=== PATIENT | female | born 1955 | race Caucasian/White ===

== ENCOUNTER 2020-02-23 16:28 | Inpatient (IN) | payer OTHER ==
[~2020-02-23] VITALS: Ht 172.7 cm; Wt 66.3 kg
[2020-02-23 16:29] VITALS: BP 156/125
[2020-02-23 16:53] LABS: HEMATOCRIT 41.9 % (37.0-47.0); HEMOGLOBIN 14.4 gm/dL (12.0-15.0); MCH 30.3 pg (26.0-34.0); MCHC 34.4 g/dL (28.0-37.0); MCV 88.1 fL (80.0-100.0); PLATELET COUNT 49 thou/uL (150-400); RBC 4.76 mil/uL (4.20-5.00); RDW 13.7 % (10.5-14.5)
[2020-02-23 16:55] LABS: BE(vivo) -5.9 mmol/L (-2 to +3); PO2 126.6 mmHg (80.0-100.0); pH 7.524 (7.360-7.450); sO2 98.9 % (92.0-98.0)
[2020-02-23 17:02] LABS: INR 1.1
[2020-02-23 17:03] LABS: WBC 0.9 thou/uL (4.0-11.0)
[2020-02-23 17:05] LABS: PCO2 17.4 mmHg (35.0-45.0)
[2020-02-23 17:10] LABS: ALBUMIN 2.3 g/dL (3.4-5.0); ANION GAP 13 mmol/L (7-16); BUN 27 mg/dL (7-18); CALCIUM 7.8 mg/dL (8.5-10.1); CHLORIDE 91 mmol/L (98-107); CO2 20 mmol/L (21-32); CREATININE 1.9 mg/dL (0.6-1.0); GLUCOSE 121 mg/dL (74-106); MAGNESIUM 1.6 mg/dL (1.8-2.4); SGOT 297 U/L (15-37); SGPT 158 U/L (30-65); SODIUM 124 mmol/L (136-145); TOTAL BILIRUBIN 0.4 mg/dL (0.2-1.0); TOTAL PROTEIN 4.6 g/dL (6.4-8.2); TROPONIN-I <0.06 ng/mL (<0.06)
[2020-02-23 17:12] LABS: POTASSIUM 2.8 mmol/L (3.5-5.1)
[2020-02-23 17:15] LABS: URINE BILIRUBIN NEGATIVE (Negative); URINE BLOOD NEGATIVE (Negative); URINE CLARITY CLEAR; URINE COLOR YELLOW; URINE GLUCOSE-RANDOM* NEGATIVE (Negative); URINE KETONES NEGATIVE (Negative); URINE LEUKOCYTES-REFLEX NEGATIVE (Negative); URINE NITRITE-REFLEX NEGATIVE (Negative); URINE PROTEIN (DIPSTICK) 1+ (Negative); URINE SPECIFIC GRAVITY 1.015 (1.005-1.035); URINE UROBILINOGEN 0.2 E.U./dl (0.2-1.0)
[2020-02-23 17:27] LABS: SQUAMOUS 0-3 Few /LPF (0-3)
[2020-02-23 17:28] LABS: BACTERIA-REFLEX 1-9 Few /HPF (None Seen); CASTS None Seen /LPF (None Seen); CRYSTALS None Seen /LPF (None Seen); URINE RBC None Seen /HPF (0-2); URINE WBC-REFLEX None Seen /HPF (0-5)
[2020-02-23 17:30] LABS: AMP/METHAMP Negative (Negative); BARBITURATES Negative (Negative); BENZODIAZEPINES Negative (Negative); COCAINE Negative (Negative); METHADONE Negative (Negative); OPIATES Negative (Negative); PCP Negative (Negative)
[2020-02-23 17:34] LABS: ABSOLUTE NEUTROPHILS 0.5 thou/uL (1.4-8.2); ANISOCYTOSIS 1+
[2020-02-23] MEDS ORDERED: DRIZALMA SPRINK20 MG PO (18:34)
--- NOTE | 2020-02-23 19:25 | NUR ---
Pt is alert and asks what is going on with her. Explained that she is septic and has an infection and angelica be staying in the hospital. Pt appears to understand. Pt reports that she wants her friend to know where she is. Pt gives consent for PICC line.
--- NOTE | 2020-02-23 20:16 | NUR ---
FRIEND: MINA TRACEY [phone]
--- NOTE | 2020-02-23 20:26 | NUR ---
CONSULTED TO PLACE A PICC FOR A PATIENT IN ER NEEDING URGENT ACCESS. ORDER AND CONSENT NOTED. THE PROCEDURE WELL BENIFITS AND RISKS DISCUSSED. THE RIGHT BASILIC WAS WIDLEY PATENT. A #5F TRIPLE LUMEN POWER PICC WAS PLACED PER HOSPITAL POLICY. A STAT CHEST XRAY CONFIRMED LINE IN PROPER POSITION AND LINE RELAESED FOR USE
[2020-02-23 22:14] LABS: BE(vivo) -15.6 mmol/L (-2 to +3); HCO3 10.3 mmol/L (22.0-26.0); PCO2 25.3 mmHg (35.0-45.0); PO2 341.8 mmHg (80.0-100.0); pH 7.226 (7.360-7.450); sO2 99.7 % (92.0-98.0)
[2020-02-23] MEDS ORDERED: ORENCIA125 MG/1 M SUBQ (23:27)
[2020-02-23] MEDS ORDERED: PREDNISONE 5 MG5 M1 PO ×2 (23:28→23:29)
[2020-02-24] VITALS (99 sets, daily range): BP systolic 74–147; BP diastolic 40–90
--- NOTE | 2020-02-24 01:30 | NUR ---
PT ADMITTED TO ICU FROM ER. WITH SEPSIS AND RESP FAILURE INTUBATED SEDATED WIH PROPOFOL MASON PURPOSEFULLY BUT FOLLOWS NO COMMANDS LEVOPHED GTT 20 MCG NA BICARB GTT 150 CC/HR. WILL CONT TO MONITOR CLOSELY.
[2020-02-24 05:52] LABS: HEMATOCRIT 37.8 % (37.0-47.0); HEMOGLOBIN 13.3 gm/dL (12.0-15.0); MCH 31.2 pg (26.0-34.0); MCHC 35.1 g/dL (28.0-37.0); MCV 88.9 fL (80.0-100.0); PLATELET COUNT 61 thou/uL (150-400); RBC 4.25 mil/uL (4.20-5.00); RDW 13.9 % (10.5-14.5); WBC 2.1 thou/uL (4.0-11.0)
--- NOTE | 2020-02-24 06:00 | NUR ---
REMAINS INTUBATED. LEVOPHED GTT AT 30 MCG NOW. 450 CC UO THIS SHIFT. ALL CONSULTS PLACED. CONT TO SHANE BUT NOT TO COMMAND. WILL CONT TO MONITOR
--- NOTE | 2020-02-24 06:00 | NUR ---
MONITOR SHOWS AFIB RATE 112
[2020-02-24 06:24] LABS: ALBUMIN 1.6 g/dL (3.4-5.0); CREATININE 1.7 mg/dL (0.6-1.0); MAGNESIUM 1.9 mg/dL (1.8-2.4); TOTAL BILIRUBIN 0.6 mg/dL (0.2-1.0); TOTAL PROTEIN 3.3 g/dL (6.4-8.2)
[2020-02-24 06:32] LABS: POTASSIUM 2.5 mmol/L (3.5-5.1)
--- NOTE | 2020-02-24 07:51 | EKG ---
[facility] [place] [address] ELECTROCARDIOGRAM REPORT Name: KENYA RIVER Room #: 244- ADM IN M.R.#: [id number] Admission: 02/23/20 Attend Phys: Del Lira Discharge: Date of : 57 Report #: [id number] THIS REPORT FOR: cc: FAM - No family physician/PCP FAM - No family physician/PCP Fuad Ventura MD [facility] THIS REPORT FOR: //name// [facility] ED Test Date: 2020-02-23 Test Time: 16:34:40 Pat Name: KENYA RIVER Department: Room: [facility] Gender: F Loss Prevention Detective: JAMES : 1955 Requested By: Darlin Rodriguez Order Number: [id number] MD: Fuad Ventura Measurements Intervals Jayess Rate: 137 P: MN: QRS: 46 QRSD: 96 T: -43 QT: 334 QTc: 505 Interpretive Statements Atrial fibrillation Borderline repolarization abnormality Prolonged QT interval No previous ECG available for comparison Electronically Signed On 02-24-2020 7:51:06 CDT by Fuad Ventura [email or web address] <ELECTRONICALLY SIGNED> By: Fuad Ventura MD, [facility] 02/24/20 0751 1634 1634 Fuad Ventura MD, [facility] /EPI
--- NOTE | 2020-02-24 08:17 | NUR ---
0700 RECEIVED REPORT FROM MARJAN. ASSUMED CARE AT THIS TIME.
[2020-02-24 08:18] LABS: ABSOLUTE NEUTROPHILS 1.4 thou/uL (1.4-8.2); METAMYELOCYTES 1 %; PLATELET ESTIMATE DECREASED
--- NOTE | 2020-02-24 09:35 | NUR ---
If tube feeds to start over weekend, recommend vital high protein, initial rate 25ml/hr. Will folllow up again on Thursday
--- NOTE | 2020-02-24 09:45 | NUR ---
SPOKE WITH PATIENT'S FRIEND WHO CALLED EMS, AARON. SHE WILL CALL THE PATIENT'S BROTHER AND SISTER OUT OF STATED TO INFORM US IF THEY HAVE DPOA ON THE PATIENT.
--- NOTE | 2020-02-24 16:49 | NUR ---
Patient admits with sepsis, RANDAL, now intubated and sedated. Sp with patients friend Malaika [phone]. She reports patients closest relative is sister in [place] , sister aware of admission. Casemgt sp with sister as well and updated her with numbers to ICU. 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 She has rheumatoid arthritis, ambulates independently but sometimes "hobbles." She has hx of lymphoma rec tx at [facility]. Malaika and sister unsure if patient has DPOA. Malaika plans to look at patients home. she reports her friend Donita who is also close friend is coming to town this evening from [place]. Malaika reports Donita might know more. Report patient has medicare [id number]. Casemgt following for dc planning. Updated registration and UR.
[2020-02-25] VITALS (92 sets, daily range): BP systolic 83–157; BP diastolic 51–87
[2020-02-25 04:24] LABS: HEMATOCRIT 39.3 % (37.0-47.0); HEMOGLOBIN 13.2 gm/dL (12.0-15.0); MCH 30.4 pg (26.0-34.0); MCHC 33.8 g/dL (28.0-37.0); MCV 90.1 fL (80.0-100.0); PLATELET COUNT 54 thou/uL (150-400); RBC 4.36 mil/uL (4.20-5.00); RDW 14.4 % (10.5-14.5); WBC 5.7 thou/uL (4.0-11.0)
[2020-02-25 04:40] LABS: ALBUMIN 1.4 g/dL (3.4-5.0); CREATININE 1.1 mg/dL (0.6-1.0); MAGNESIUM 1.8 mg/dL (1.8-2.4); PHOSPHORUS 2.7 mg/dL (2.5-4.9); TOTAL BILIRUBIN 0.6 mg/dL (0.2-1.0); TOTAL PROTEIN 3.4 g/dL (6.4-8.2)
[2020-02-25 04:41] LABS: POTASSIUM 2.9 mmol/L (3.5-5.1)
[2020-02-25 04:55] LABS: ABSOLUTE NEUTROPHILS 5.6 thou/uL (1.4-8.2)
[2020-02-25 04:57] LABS: PLATELET ESTIMATE DECREASED
--- NOTE | 2020-02-25 07:29 | NUR ---
Patient remains on the ventilator and sedated. Levophed and Kushal-Synephrine is still infusing but was able to titrate the Levophed down a bit. Patient still has critical lactic acid values despite all the fluid boluses given. No acute events occurred during this shift. Patient as of yet is not progressing towards goal.
--- NOTE | 2020-02-25 08:00 | NUR ---
UPDATED FAMILY FRIEND PRIMITIVO. EMOTIONAL SUPPORT GIVEN.
--- NOTE | 2020-02-25 11:29 | 2DMMODE ---
[facility] [address] [facility] [place] [address] 2 D/M-MODE ECHOCARDIOGRAM Name: ALETAKENYA Lynsey Room #: 244-P ADM IN M.R.#: [id number] Admission: 02/23/20 Attend Phys: Del Lira Discharge: Date of : 57 Report #: [id number] THIS REPORT FOR: cc: FAM - No family physician/PCP FAM - No family physician/PCP Ryan Emanuel MD ~ APPROVED REPORT Study performed: 02/25/2020 08:45:13 EXAM: Comprehensive 2D, Doppler, and color-flow Echocardiogram Patient Location: ICU Room #: 244 Status: routine BSA: 1.73 HR: 108 bpm BP: 112/71 mmHg Other Information Study Quality: Adequate Indications Atrial Fibrillation 2D Dimensions RVDd: 32.28 mm IVSd: 10.44 (7-11mm) LVOT Diam: 20.01 (18-24mm) LVDd: 48.22 mm PWd: 9.33 (7-11mm) Ascending Ao: 30.19 (22-36mm) LVDs: 34.16 (25-40mm) Aortic Root: 30.86 mm IVC: 18.00 mm Volumes Left Atrial Volume (Systole) Single Plane 4CH: 47.40 mL Single Plane 2CH: 61.84 mL LA ESV Index: 35.00 mL/m2 Aortic Valve AoV Peak Jorge.: 1.32 m/s AO Peak Gr.: 7.00 mmHg LVOT Max P.77 mmHg LVOT Max V: 0.83 m/s MARK Vmax: 1.98 cm2 Mitral Valve [facility] [address] [place] [address] 2 D/M-MODE ECHOCARDIOGRAM Name: ALETAKENYA L Room #: 244-P [facility] [place]#: [id number] Admission: 02/23/20 Attend Phys: Del Rehman Discharge: Date of : 57 Report #: [id number] MV Decel. Time: 163.88 ms MV E Max Jorge.: 1.31 m/s IVRT: 69.20 ms Pulmonary Valve PV Peak Jorge.: 0.76 m/s PV Peak Gr.: 2.28 mmHg Tricuspid Valve TR Peak Jorge.: 2.15 m/s RAP Estimate: 10.00 mmHg TR Peak Gr.: 18.57 mmHg PA Pressure: 29.00 mmHg Left Ventricle The left ventricle is normal size. There is normal left ventricular wall thickness. Left ventricular systolic function is borderline. LVEF is 50-55%. Right Ventricle The right ventricle is normal size. The right ventricular systolic function is normal. Atria Left atrium is at the upper limits of normal. The right atrium size is normal. Aortic Valve The aortic valve is normal in structure. No aortic regurgitation is present. There is no aortic valvular stenosis. Mitral Valve The mitral valve is normal in structure. Moderate mitral regurgitation. No evidence of mitral valve stenosis. Tricuspid Valve The tricuspid valve is normal in structure. Trace tricuspid regurgitation. PAP is estimated at 29 mmHg. Pulmonic Valve The pulmonary valve is normal in structure. Mild pulmonic regurgitation. Great Vessels The aortic root is normal in size. IVC is normal in size and collapses <50% with inspiration. Pericardium [facility] [address] [place] [address] 2 D/M-MODE ECHOCARDIOGRAM Name: ALETAKENYA Lynsey Room #: 244-P [facility] IN [facility].#: [id number] Admission: 02/23/20 Attend Phys: Del Rehman Discharge: Date of : 57 Report #: [id number] There is no pericardial effusion. <Conclusion> The left ventricle is normal size. LVEF is 50-55%. Left atrium is at the upper limits of normal. The mitral valve is normal in structure. Moderate mitral regurgitation. The tricuspid valve is normal in structure. Trace tricuspid regurgitation. PAP is estimated at 29 mmHg. The pulmonary valve is normal in structure. Mild pulmonic regurgitation. There is no pericardial effusion. <ELECTRONICALLY SIGNED> By: Ryan Emanuel MD 02/25/20 1128 1128 1128 Ryan Emanuel MD /INF
[2020-02-25 12:38] LABS: BE(vivo) 2.3 mmol/L (-2 to +3); HCO3 26.3 mmol/L (22.0-26.0); PCO2 38.7 mmHg (35.0-45.0); PO2 145.1 mmHg (80.0-100.0)
--- NOTE | 2020-02-25 14:00 | NUR ---
CALLED DR. SORTO, RE K 3.4. ORDERS GIVEN. PT SISTER CALLED UPDATE GIVEN.
[2020-02-25 14:09] LABS: CLARITY CLOUDY; COLOR YELLOW; SOURCE KNEE FLUID; TOTAL VOLUME 19 mL
[2020-02-25 14:30] LABS: BF NUCLEATED CELLS 17424 /mm3; BF RBC 9693 /mm3
[2020-02-25 14:50] LABS: BF CRYSTALS No Crystals seen
[2020-02-25 15:14] LABS: BF MACROPHAGE 6 %; BF NEUTROPHILS 86 %
--- NOTE | 2020-02-25 17:00 | NUR ---
DR. BOB CALLED ASKED THIS RN TO SWEEP VAGINA DUE TO TOXIC SHOCK. NOTHING APPRECIATED IN THE VAULT.
--- NOTE | 2020-02-25 18:42 | NUR ---
PT REMIANED STABLE ON VENT. ABLE TO GET LEVOPHED DOWN TO 10MCG. PT FOLLOWS COMMAND WEAKLY WHEN LIGHTENED UP OFF SEDATION.
[2020-02-26] VITALS (93 sets, daily range): BP systolic 85–120; BP diastolic 56–86
[2020-02-26 05:39] LABS: RDW 14.2 % (10.5-14.5); WBC 4.1 thou/uL (4.0-11.0)
[2020-02-26 05:41] LABS: HEMATOCRIT 33.1 % (37.0-47.0); MCH 30.7 pg (26.0-34.0); MCHC 33.9 g/dL (28.0-37.0); MCV 90.5 fL (80.0-100.0); RBC 3.66 mil/uL (4.20-5.00)
[2020-02-26 05:46] LABS: ALBUMIN 1.1 g/dL (3.4-5.0); CREATININE 0.8 mg/dL (0.6-1.0); PHOSPHORUS 2.4 mg/dL (2.5-4.9); POTASSIUM 3.6 mmol/L (3.5-5.1)
[2020-02-26 05:47] LABS: HEMOGLOBIN 11.2 gm/dL (12.0-15.0)
[2020-02-26 06:06] LABS: CALCIUM 5.6 mg/dL (8.5-10.1)
--- NOTE | 2020-02-26 06:39 | NUR ---
Patient remains on the ventilator with Propofol and Fentanyl infusing for sedation. Patient also remains on Levophed and Neosynephrine for pressure support. Patient follows some commands during sedation vacation. No acute events occurred during this shift.
[2020-02-27] VITALS (77 sets, daily range): BP systolic 86–126; BP diastolic 53–81
[2020-02-27 04:54] LABS: BE(vivo) 11.1 mmol/L (-2 to +3); HCO3 35.3 mmol/L (22.0-26.0); PCO2 45.2 mmHg (35.0-45.0); PO2 113.3 mmHg (80.0-100.0); pH 7.511 (7.360-7.450); sO2 98.5 % (92.0-98.0)
[2020-02-27 05:21] LABS: PLATELET COUNT 26 thou/uL (150-400); WBC 2.6 thou/uL (4.0-11.0)
[2020-02-27 05:26] LABS: HEMATOCRIT 30.7 % (37.0-47.0); HEMOGLOBIN 10.6 gm/dL (12.0-15.0); MCH 31.4 pg (26.0-34.0); MCHC 34.6 g/dL (28.0-37.0); MCV 90.9 fL (80.0-100.0); RBC 3.38 mil/uL (4.20-5.00); RDW 14.3 % (10.5-14.5)
[2020-02-27 05:44] LABS: ALBUMIN 0.9 g/dL (3.4-5.0); CREATININE 0.9 mg/dL (0.6-1.0); POTASSIUM 3.4 mmol/L (3.5-5.1); TOTAL BILIRUBIN 0.4 mg/dL (0.2-1.0); TOTAL PROTEIN 4.9 g/dL (6.4-8.2)
[2020-02-27 05:46] LABS: CALCIUM 5.7 mg/dL (8.5-10.1)
--- NOTE | 2020-02-27 07:41 | NUR ---
0700 RECEIVED REPORT FROM GUERO MADRID. [address] RUSS AT BEDSIDE. EDEMA +3 GENERALIZED. ORDER TO STOP BICARB GTT. ORDER TO WEAN PRESSERS TO A MAP OF 60.
[2020-02-27 08:15] LABS: ABSOLUTE NEUTROPHILS 2.3 thou/uL (1.4-8.2); ANISOCYTOSIS SLIGHT; METAMYELOCYTES 2 %; PLATELET ESTIMATE MARKEDLY DECREASED; POIKILOCYTOSIS SLIGHT
[2020-02-27 08:16] LABS: TOXIC GRANULATION SLIGHT
--- NOTE | 2020-02-27 10:02 | NUR ---
If cleared to feed after CT abdomen, would recommend start vital high protein at 25ml/hr with goal of 50ml/hr while on propofol. Defer fluid needs to physician.
--- NOTE | 2020-02-27 15:46 | NUR ---
chart review. pt remains intubated. unable to visit with pt sister. noted per chart. pt lived alone. will cont following as needed for dc needs. pt niece valentín called stated family unable to be here. i can pass on information to other families. will cont following as needed for dc needs.
--- NOTE | 2020-02-27 17:31 | NUR ---
SPOKE WITH DR FISH TO CLARIFY NEOSYNEPHRINE ORDER, TO CONTINUE GENA FOR ELEVATED HEART RATE.
[2020-02-28] VITALS (71 sets, daily range): BP systolic 80–144; BP diastolic 40–97
--- NOTE | 2020-02-28 06:00 | NUR ---
REMAINS INTUBATED AND SEDATED WITH PROPOFOL AND FENTANYL GTTS. GENA GTT 50 MCG EYES OPEN FOLLOWS SIMPLE COMMANDS. LUNGS REMAIN COARSE BILAT. 800 CC UO THIS SHIFT. CONT TO HAVE 3 + PITTING EDEMA. BATHED. WILL CONT TO MONITOR
[2020-02-28 06:10] LABS: ALBUMIN 0.9 g/dL (3.4-5.0); CREATININE 0.8 mg/dL (0.6-1.0); PHOSPHORUS 2.4 mg/dL (2.5-4.9); POTASSIUM 3.1 mmol/L (3.5-5.1)
[2020-02-28 06:35] LABS: CALCIUM 5.7 mg/dL (8.5-10.1)
[2020-02-28 11:36] LABS: HEMOGLOBIN 9.8 gm/dL (12.0-15.0); MCH 31.1 pg (26.0-34.0); MCV 90.2 fL (80.0-100.0)
[2020-02-28 11:37] LABS: HEMATOCRIT 28.5 % (37.0-47.0); MCHC 34.5 g/dL (28.0-37.0); RBC 3.16 mil/uL (4.20-5.00); RDW 14.3 % (10.5-14.5)
[2020-02-28 12:53] LABS: ABSOLUTE NEUTROPHILS 1.9 thou/uL (1.4-8.2); LARGE PLATELETS SEVERAL; PLATELET COUNT 27 thou/uL (150-400); PLATELET ESTIMATE MARKEDLY DECREASED
--- NOTE | 2020-02-28 18:43 | NUR ---
ASSESSMENTS AND INTERVENTIONS DOCCUMENTED. PATIENT RESTING AT SHIFT CHANGE. PATIENT IN AFIBB WITH RVR. PATIENT STARTED ON CARDIZEM GTT. PATIENT'S NIECE AT BEDSIDE. NIECE UPDATED ABD EDUCATED ABOUT POC. NIECE REMAINED AT BEDSIDE, BUT WAS CAUSING AN INCREASE IN PATIENT'S VITAL SIGNS. RN ASKING NIECE TO STEP OUT INTO THE WAITING ROOM. NIECE ADAMANT ABOUT CPAP TRAIL BUT PATIENT DOES NOT QUALIFY AT THIS TIME. PATIENT RESTING. PATIENT PROGRESSING TOWARDS GOALS AT THIS TIME EVIDENCE BY BEING OFF OF GENA.
[2020-02-28 23:07] LABS: HAV IgM AB (ANTI-HAV IgM) Negative (Negative); HEPATITIS B SURFACE AG Negative (Negative); HEPATITIS C VIRUS AB 0.1 (0.0-0.9)
[2020-02-29] VITALS (8 sets, daily range): BP systolic 84–123; BP diastolic 37–92
--- NOTE | 2020-02-29 05:32 | NUR ---
ASSUMED CARE OF PATIENT AT 1900. CARDIZEM GTT TITRATED TO LOWER HEART RATE. VERSED GTT INITIATED FOR SAME. PROPOFOL AND FENTYNAL STILL INFUSING. AWAKENS EASILY, DENIES PAIN. DAUGHTER CALLED. REVIEWED POC. ALL QUESTIONS ANSWERED. VERBALIZED UNDERSTANDING.
[2020-02-29 05:41] LABS: HEMOGLOBIN 9.6 gm/dL (12.0-15.0); WBC 2.2 thou/uL (4.0-11.0)
[2020-02-29 05:45] LABS: HEMATOCRIT 28.1 % (37.0-47.0); MCH 31.1 pg (26.0-34.0); MCHC 34.2 g/dL (28.0-37.0); MCV 90.9 fL (80.0-100.0); RBC 3.09 mil/uL (4.20-5.00); RDW 14.3 % (10.5-14.5)
[2020-02-29 06:05] LABS: ALBUMIN 0.9 g/dL (3.4-5.0); CALCIUM 6.3 mg/dL (8.5-10.1); CREATININE 0.8 mg/dL (0.6-1.0); MAGNESIUM 1.9 mg/dL (1.8-2.4); PHOSPHORUS 2.1 mg/dL (2.5-4.9); POTASSIUM 3.8 mmol/L (3.5-5.1); TOTAL BILIRUBIN 0.5 mg/dL (0.2-1.0); TOTAL PROTEIN 4.7 g/dL (6.4-8.2)
--- NOTE | 2020-02-29 08:50 | NUR ---
ASSESSMENTS AND INTERVENTIONS DOCCUMENTED. PATIENT SEDATED THIS AM, PATIENT DROWSY AND UNABLE TO FOLLOW COMMANDS. RN TITRATING SEDATION DOWN. AROUND 0830, DONI ROUNDING ON PATIENT. RN INQUIRING ABOUT LASIX DUE TO 3+ PITTING EDEMA. WAITING FOR ORDERS. SUHAIL ARAMBULA ROUNDING, NO NEW ORDERS. RN TO CONTINUE TO IMPLEMENT POC.
--- NOTE | 2020-02-29 14:22 | HC ---
[facility] [place] [address] CONSULTATION Name: KENYA RIVER Room #: 244- ADM IN M.R.#: [id number] Admission: 02/23/20 Attend Phys: Del Lira Discharge: Date of : 57 Report #: [id number] THIS REPORT FOR: cc: FAM - No family physician/PCP FAM - No family physician/PCP Nolan Cummings MD ~ CC: [facility] physician/PCP Pelon Sauceda MD REQUESTING PHYSICIAN: Gregorio Bronson MD REASON FOR CONSULTATION: History of lymphoma. HISTORY OF PRESENT ILLNESS: The patient is a 65-year-old female usually followed by Dr. Jose Paredes at [facility], who has a history of marginal zone lymphoma, stage 4, originally diagnosed in 1999. She has a record in the system from 02/06, at that time, had about a 4-day history when she talked with the upper cutter out about fevers, chills, nausea, vomiting. More recently, it sounds like she had had some similar symptoms and was found to be confused by her friend and EMT was called. She was found to be hypoxic. Here, she is thought to be septic with gram-positive cocci growing from her blood. The patient is currently in the ICU on the ventilator, has been COVID negative. The patient cannot provide any history at this time. This is all from chart review, both at the system and also [facility]. Note that when the patient came in, the CT raised a question about some thickening and fluid in her neck and they thought perhaps there might have source of infection there. ENT saw and did not think so. CAT scans have not found any abscesses or what looks like there does not appear to be any enlarged lymphadenopathy. Counts here were low when she was last lab that I had downloaded from on 12/05/2019. White count was 7.1, hemoglobin at 13.7, platelets 213 with a normal differential at that time. There may be a later lab but that is what I had found at that time. PAST MEDICAL HISTORY: Noted for the low-grade lymphoma as mentioned before with Rituxan single agent in August 2001 for 4 weeks, FCR chemotherapy began on 11/09/2001 and then changed to FC only for third cycle on 01/04/2002 and then fourth cycle fludarabine, Cytoxan only on 01/26/2012. She then had bendamustine and rituximab, I believe, in December 2016 last given and then switched to bendamustine-obinutuzumab in 01/2017, that was given for sixth cycle on 07/01/2017. She then began on Gazyva maintenance on 09/02/2017, discontinued 07/2018 due to, I think, prolonged neutropenia. She was on growth ____ and I believe her counts have been normal. She also had had a bone marrow showing [facility] [address] [place] [address] CONSULTATION Name: KENYA RIVER Room #: 244-P [facility] IN M.R.#: [id number] Admission: 02/23/20 Attend Phys: Del Lira Discharge: Date of : 57 Report #: [id number] that she had normal cellularity. 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 This has subsequently or appears to have been resolved. History is also notable for rheumatologic disorder. Also, here on admission, had atrial fibrillation with rapid ventricular rate, renal insufficiency slightly worse since she has been here. Question of toxic encephalopathy. SOCIAL HISTORY: Not available. FAMILY HISTORY: Not available. MEDICATIONS: At this time in the hospital currently include IV dextrose with sodium bicarbonate; has been on pressors with phenylephrine; also has been receiving hydrocortisone stress doses 100 mg q. 6 hours IV; insulin on a sliding scale; fentanyl p.r.n.; pantoprazole 40 daily IV; vancomycin q. 12, dose adjusted; Zosyn 3.375 grams IV q. 8; heparin 5000 units b.i.d. subcutaneous; Tylenol p.r.n. and Zofran p.r.n. PHYSICAL EXAMINATION: GENERAL: The patient appears her stated age. She is intubated in room #244 of the ICU. VITAL SIGNS: Height is reported as 5 feet 8 inches, 172.7 cm, weight 136 pounds or 62 kilograms. Recent blood pressure 112/64, respirations 14, pulse 109, temperature 96.3. Currently on the ventilator with settings of I believe 40% with some PEEP, if I recall. MOOD: Cannot assess. NEUROLOGIC: Cannot assess full. Pupils are equal. LYMPHATICS: No enlarged lymph nodes in the supraclavicular, axillary or inguinal region. ABDOMEN: Slightly gassy. No masses palpable. EXTREMITIES: Without clubbing or cyanosis. There may be some trace edema. LABORATORY DATA: Here has a sodium of 124 admit, currently 130; potassium 3.1, creatinine 1.7. Glucose currently 261. AST was 297, now 218. Calcium was 7.8 and is currently 6. SGPT was 158, is now 107. Total protein on admit 4.6, now 3.3. Albumin 1.6. Lactic acid has had various ranges, 4.1 on admit, most recent is 5.5. Total CPK 237. C-reactive protein 43. Protime on admit 11 with an INR of 1.1. Drug screen notable for marijuana. White count 0.9 on admit, currently 2.1; hemoglobin 14 4, now 13.3; MCV 88.9; platelets 49 on admit, now 61. Differential has an increase in bands. Also note, there was 1 metamyelocyte seen. ANC on admit was low at 5, now is 1.5 thousand. Influenza A and B negative. TSH 0.565. Coronavirus negative. UA was nonacute. ASSESSMENT AND PLAN: 1. History of lymphoma, not thought to be recurrent. CT shows no evidence. 2. Cytopenia, is most likely sepsis, most recent lab at in November that I could see showed adequate white count, platelet count and hemoglobin. [address] [address] CONSULTATION Name: ALETAKENYA L Room #: 244-P ADM IN M.R.#: [id number] Admission: 02/23/20 Attend Phys: Del Lira Discharge: Date of : 57 Report #: [id number] 3. Gram-positive cocci in blood and sepsis. Continues pressors, antibiotics and IV fluids, cultures per others. 4. Possible rheumatologic condition, now on stress doses of steroids. 5. Metabolic encephalopathy, cannot assess at this time, though CT ____ was unremarkable. 6. Multiple electrolyte abnormalities. Defer to others. 7. Renal insufficiency, dose modification as needed, will defer to others. <ELECTRONICALLY SIGNED> By: Nolan Cummings MD 02/29/20 1422 12 2151 Nolan Cummings MD /nt
--- NOTE | 2020-02-29 17:15 | NUR ---
Case discussed with the care team. Pt remains intubated in the ICU. Nursing reports pt's niece Sol from [place] is the designated visitor per pt's sister/dpoa Christi Kathryn's request. Apparently, Christi is ill herself and had recent surgery. DPOA for HC document is on the chart and was rec'd from the [facility]. Pt's sister Christi is her primary dpoa and friend Wood is her alernate. DC timeframe and needs are uncertain. Will follow.
[2020-02-29 23:54] LABS: URINE BILIRUBIN NEGATIVE (Negative); URINE BLOOD NEGATIVE (Negative); URINE CLARITY CLEAR; URINE COLOR YELLOW; URINE GLUCOSE-RANDOM* NEGATIVE (Negative); URINE KETONES NEGATIVE (Negative); URINE LEUKOCYTES-REFLEX NEGATIVE (Negative); URINE NITRITE-REFLEX NEGATIVE (Negative); URINE PROTEIN (DIPSTICK) 1+ (Negative); URINE SPECIFIC GRAVITY <= 1.005 (1.005-1.035); URINE UROBILINOGEN 0.2 E.U./dl (0.2-1.0)
[2020-03-01] VITALS (42 sets, daily range): BP systolic 87–147; BP diastolic 46–85
[2020-03-01 00:08] LABS: SQUAMOUS 4-10 Moderate /LPF (0-3); URINE WBC-REFLEX 0-5 Rare /HPF (0-5)
[2020-03-01 00:09] LABS: BACTERIA-REFLEX 1-9 Few /HPF (None Seen); CASTS None Seen /LPF (None Seen); CRYSTALS None Seen /LPF (None Seen); MUCUS 0-3 Light strn/LPF (None Seen); URINE RBC 0-2 Rare /HPF (0-2)
[2020-03-01 06:09] LABS: HEMOGLOBIN 10.1 gm/dL (12.0-15.0); WBC 2.2 thou/uL (4.0-11.0)
[2020-03-01 06:10] LABS: HEMATOCRIT 29.8 % (37.0-47.0); MCH 30.3 pg (26.0-34.0); MCHC 33.8 g/dL (28.0-37.0); MCV 89.6 fL (80.0-100.0); RBC 3.33 mil/uL (4.20-5.00); RDW 14.6 % (10.5-14.5)
[2020-03-01 06:34] LABS: CALCIUM 6.7 mg/dL (8.5-10.1); CREATININE 0.7 mg/dL (0.6-1.0); POTASSIUM 3.5 mmol/L (3.5-5.1)
--- NOTE | 2020-03-01 11:26 | NUR ---
had voice message from family and niece valentín. " its ok but little frustrated with communication with all dr, not knowing her whole medical history and want his tx plan from dr. still need updates from the nurse. we were told still waiting on covid test"
--- NOTE | 2020-03-01 18:24 | NUR ---
ASSUMED CARE @ 0700 03/01/20, PT ASSESSMENTS AND VSS COMPLETE PER ICU PROTOCOL. @ 0800, PT PLACED ON CPAP BY RT, 0815, PT HR IN THE 160'S, PT SWITCHED TO A/C, PT'S HR NOT GOING DOWN. SUHAIL PAINTER RAILROAD CAR @ BEDSIDE, JEN PRT ORDERED. @ 1600, PT ABLE TO NOD APPROPRIATELY INTERMMITTENTLY EVEN WHILE ON VERSED AND FENTANYL GTT. DR FISH @ BEDSIDE THIS AFTERNOON TO ASSESS PT, ABLE TO UPDATE ANANTH, @ BEDSIDE. PT'S NIECE. COVID RESULTS BACK NEGATIVE, PT TAKEN OUT OF ISOLATION PER GE. PT TRANSPORTED TO CT, NO COMPLICATIONS NOTED. TF PAUSED @ 0825 THIS AM, RESIDUALS 250ML, RESTARTED @ 1200, RESIDUAL 5ML @ 40, ADVANCED TO 50ML/HR @ 1600, PT ABLE TO TOLERATE.
[2020-03-02] VITALS (25 sets, daily range): BP systolic 88–173; BP diastolic 37–104
[2020-03-02 05:18] LABS: HEMATOCRIT 32.6 % (37.0-47.0)
[2020-03-02 05:20] LABS: HEMOGLOBIN 11.2 gm/dL (12.0-15.0); MCH 30.8 pg (26.0-34.0); MCHC 34.2 g/dL (28.0-37.0); MCV 89.8 fL (80.0-100.0); RBC 3.63 mil/uL (4.20-5.00); RDW 14.5 % (10.5-14.5); WBC 3.8 thou/uL (4.0-11.0)
--- NOTE | 2020-03-02 05:33 | NUR ---
2230: SPOKE TO PT'S SISTER. UPDATED HER ON PT'S STATUS INCLUSINF VITALS. SISTER SEBASTIAN SAID SHE WILL SEE HER THIS AM.
--- NOTE | 2020-03-02 05:43 | NUR ---
AROUND 1900. PT HR WAS BTW 90S AND 120S AND IN AFIB. AROUND 2099, I TOOK PT'S TEMP AND IT WAS 99.5 AXILLARY WITH AFIB RVR OF HR BTW 140s-170S. DR SANON CARDIOLOGY CALLED AND RECIEVED AND ORDER TO INCREASE AMIO GTT TO 1 MG FOR 12 HOURS AND THEN TREND BACK DOWN TO 0.5MG. RN ALSO MAXED PT'S GTT OF FENTANYL AND VERSED; WITH THIS INTERVENTION WITHIN AND HOUR, PT'S HR BEGAN TO TREND DOWN AND SUSTAIN. PT'S HR CAME DOWN TO 80S-110S. TYLENOL GIVEN FOR TEMP, MOST RECENT PT'S TEMP IS 97.0 AXILLARY. AROUND 0, I TITRATED FENTANLY AND VERSED DOWN TO 70 AND 4 RESPECTIVELY AND PT WENT BACK INTO AFIB RVR WITH HR UP TO 170S AGAIN SO I WENT BACK UP ON BOTH DRIPS AND HR BEGAN TRENDING DOWN. PT IS STABLE FOR NOW. GREAT U/O GREATER THAN 300ML THIS SHIFT. WILL CONTINUE TO CLOSELY MONITOR.
[2020-03-02 07:41] LABS: CALCIUM 7.3 mg/dL (8.5-10.1); CREATININE 0.7 mg/dL (0.6-1.0); POTASSIUM 3.2 mmol/L (3.5-5.1)
--- NOTE | 2020-03-02 10:46 | NUR ---
Nutrition: With D/C of propofol, REC increase tube feeds to 65 mL/hr.
--- NOTE | 2020-03-02 11:32 | NUR ---
chart review, report from bedside nurse. no anticipated dc over the weekend. will cont following as needed for dc needs. called jessie laura via phone call # [phone] " i just have asked for ID to call be and i have not heard anything"/valentín. cm passed on information to dr prado. will cont following as needed for dc needs.
--- NOTE | 2020-03-02 13:38 | NUR ---
assumed care of pt at 0700, pt has been a gcs of 9-11, she does not appear to be in pain or in a discomfort. pt has been having a HR in the 120s-140s and cardiology is aware, pt on amio drip currently. cont to need fentanyl and versed for tube management. pt resting in bed with eyes closed. [facility].
--- NOTE | 2020-03-02 17:11 | NUR ---
ASSUMED CARE OF PATIENT AT 1400. PATIENT SEEMS RESTLESS WHILE AWAKE, WITH SLIGHT TREMOR AND ELEVATED HEART RATE. WHEN ASKED IF UNCOMFORTABLE OR IN PATIENT PATIENT SHAKES HEAD NO. FENTANYL GTT INFUSING WELL VERSED GTT FOR VENT MANAGEMENT. NO CPAP TRAIL TODAY DUE TO TACHYCARDIA. REMAINS ON AMIO GTT PER CARDIOLOGY RECS. GENERALIZED EDEMA, SCHEDULED IV LASIX GIVEN WITH ADEQUATE URINE OUTPUT. REPLACING ELECTROLYTES. WILL CONTINUE TO FOLLOW PLAN OF CARE.
--- NOTE | 2020-03-02 20:47 | HC ---
[facility] [place] [address] CONSULTATION Name: KENYA RIVER Room #: 244-[facility] IN M.R.#: [id number] Admission: 02/23/20 Attend Phys: Del Lira Discharge: Date of : 57 Report #: [id number] THIS REPORT FOR: cc: ROSALINA - Cristina family physician/PCP ROSALINA - Cristina family physician/PCP Moose Guerra MD ~ CC: ROSALINA physician/PCP Del Lira REASON FOR CONSULTATION: Acute kidney injury. REASON FOR PRESENTATION: EMS called by her friend. HISTORY OF PRESENT ILLNESS: This is obtained from the medical chart. This is a 65-year-old who has history of lymphoma, is in remission. Apparently, the patient has been having low-grade fever. This was associated with mild diarrhea. She visited with an urgent care. She was instructed to have a COVID test; however, she declined. She went home and had further deterioration of her conditions including altered mental status, low-grade temperature. A friend checked on her and found her severely confused. EMS was called. The patient's oxygen saturation upon the arrival of the EMS was in the 80s. She was found to be in AFib with RVR. She was found to be hypotensive. On presentation to the Emergency Room, she was in an acute kidney injury with a creatinine of 1.9, potassium was 2.8 mandating Nephrology consultation. No further details are available about the patient's history; however, I had reviewed her medical records and it looks like that the patient has history of marginal zone lymphoma treated back in 1999 and is followed by Hematology-Oncology. As of this morning, the patient's condition had improved from the renal side with her creatinine coming down to a normal level. She continued to have issues with hypokalemia. She had a negative COVID-19 test thus far. PAST MEDICAL HISTORY: As obtained from the medical chart, rheumatoid arthritis, lymphoma. FAMILY HISTORY: I am not able to obtain her family history given her current mental status. ALLERGIES: None is listed. HOME MEDICATIONS: Listed: 1. Prednisone. 2. Viracept. SOCIAL HISTORY: Unable to obtain given the patient's current mental status. REVIEW OF SYSTEMS: Unable to obtain given the patient's current mental status. [address] [address] CONSULTATION Name: KENYA RIVER Room #: 244-P [facility] IN ..#: [id number] Admission: 02/23/20 Attend Phys: Del Lira Discharge: Date of : 57 Report #: [id number] PHYSICAL EXAMINATION: GENERAL: She is intubated. VITAL SIGNS: Temperature is 35.7, pulse rate is 98, blood pressure is 106/67, maintained on 2 pressors. HEAD AND NECK: ET tube and central lines in place. CHEST: Decreased air entry bilaterally with minimal crackles. CARDIOVASCULAR: No rub detected. ABDOMEN: Soft. EXTREMITIES: Lower extremities, +1 edema with a warm left knee. LABORATORY VALUES: Reviewed. PH of 7.2 from yesterday, no pH today. White blood cell count 5.7, platelets 54. Significant bandemia present. She has gram-positive cocci in her blood. Sodium is 133, potassium is 2.9, BUN is 23, creatinine is 1.1. IMPRESSION AND PLAN: 1. Septic shock. 2. Acute kidney injury. 3. Respiratory failure. 4. Atrial fibrillation. 5. History of lymphoma. 6. The patient's acute kidney injury is related to the current septic shock. This seems to be improving. I will keep on the current IV fluid. 7. Replace electrolytes. 8. She is growing gram-positive cocci in her blood and currently ID is following and adjusting her antibiotics. 9. She is currently being followed by Hematology-Oncology regarding her remote history of B-cell lymphoma. She is also followed by Cardiology for her atrial fibrillation and by Pulmonary regarding her current intubation status. <ELECTRONICALLY SIGNED> By: Moose Guerra MD 03/02/20 2047 0759 9 Moose Guerra MD /nt
[2020-03-03] VITALS (54 sets, daily range): BP systolic 70–159; BP diastolic 35–101
[2020-03-03 06:01] LABS: HEMOGLOBIN 10.4 gm/dL (12.0-15.0); MCH 30.4 pg (26.0-34.0)
[2020-03-03 06:02] LABS: HEMATOCRIT 30.4 % (37.0-47.0); MCHC 34.2 g/dL (28.0-37.0); RBC 3.42 mil/uL (4.20-5.00); WBC 4.8 thou/uL (4.0-11.0)
[2020-03-03 06:36] LABS: ALBUMIN 1.2 g/dL (3.4-5.0); CALCIUM 7.6 mg/dL (8.5-10.1); CREATININE 0.6 mg/dL (0.6-1.0); PHOSPHORUS 3.4 mg/dL (2.5-4.9); POTASSIUM 3.7 mmol/L (3.5-5.1)
--- NOTE | 2020-03-03 08:00 | NUR ---
Pt continues to have a-fib with RVR going up as high as 165. Rate responds to sedation -- pt was 80-100 bpm when Fentanyl 100 mcg/hr and Versed 6 mg/hr. Per report cardiology was aware of heart rate during day 03/02 and no orders given. Day shift nurse will address again with cardiology. Serum potassium intially 3.1 at beginning of shift; Nurse practioner notified that electrolyte protocol did not seem to be enough replacement given pt low serum K+ during day even after replacement. Extra IVPB dose of KCl given and pt will start on routine replacement as well as protocol while being diuresed. Tolerating tube feeding well except for large amount of liquid brown stool -- 450 cc this shift. Stool does not have look or smell of C.Diff. Sedation was titrated down this morning due to MAP <60; pt currently at Fentanyl 75 mcg/hr and Versed 5 mg/hr. Heart rate is back up to 140-150.
--- NOTE | 2020-03-03 19:52 | NUR ---
A-FIB 120-160'S THIS AM. DR SARMIENTO ROUNDED AND ORDERED CARDIZEM TITRATE BUT KEEP SBP >100. CARDIZEM INFUSING AND HR DECREASED BUT AFTER A FEW HOURS PT HAD HYPOTENSION. ] CARDIZEM STOPPED AND BP REMAINS ON 70'S. PT STARTED ON LEVOPHED FOR SHORT PERIOD OF TIME. BP IMPROVED AND LEVOPHED WEANED OFF. HR RETURNED TO 140'S AND CARDIZEM RESTARTED AT 5MG/HR. PT TOLERATING WELL AT THIS TIME WITH SBP >100. PT REMAINS INTUBATED TODAY. CPAP TRIAL X2 HRS AND TOLERATED WELL THIS AFTERNOON. CONTINUES TO HAVE LARGE AMOUNT OF SECRETIONS AND LOW GRADE TEMP. IV LASIX GIVEN AND DIURESING WELL. TUBE FEEDING INFUSING AND TOLERATING WELL. REPORT GIVEN TO PROGRAM LEAD RN.
[2020-03-03 20:45] LABS: FOLIC ACID 3.4 ng/mL (8.6-58.9)
[2020-03-04] VITALS (83 sets, daily range): BP systolic 62–155; BP diastolic 29–102
[2020-03-04 04:49] LABS: PROTIME 9.2 Seconds (9.3-11.4)
[2020-03-04 05:09] LABS: ALBUMIN 1.2 g/dL (3.4-5.0); CALCIUM 7.7 mg/dL (8.5-10.1); CREATININE 0.8 mg/dL (0.6-1.0); DIRECT BILIRUBIN 0.1 mg/dL (<0.1-0.2); MAGNESIUM 1.6 mg/dL (1.8-2.4); PHOSPHORUS 4.2 mg/dL (2.5-4.9); POTASSIUM 3.4 mmol/L (3.5-5.1); TOTAL BILIRUBIN 0.4 mg/dL (0.2-1.0); TOTAL PROTEIN 4.5 g/dL (6.4-8.2)
[2020-03-04 06:47] LABS: URINE BILIRUBIN NEGATIVE (Negative); URINE BLOOD NEGATIVE (Negative); URINE CLARITY CLEAR; URINE COLOR YELLOW; URINE GLUCOSE-RANDOM* NEGATIVE (Negative); URINE KETONES NEGATIVE (Negative); URINE LEUKOCYTES-REFLEX NEGATIVE (Negative); URINE NITRITE-REFLEX NEGATIVE (Negative); URINE PROTEIN (DIPSTICK) NEGATIVE (Negative); URINE SPECIFIC GRAVITY 1.015 (1.005-1.035); URINE UROBILINOGEN 0.2 E.U./dl (0.2-1.0)
--- NOTE | 2020-03-04 15:27 | NUR ---
ASSUMED CARE @ 0700 03/04/20, PT ASSESSMENTS AND VSS COMPLETE PER ICU PROTOCOL. PT ENCOUNTERED ON FENTANYL AND VERSED GTT FOR SEDATION FOR VENT MANAGEMENT. SEDATION VACATION PERFORMED, PT DID NOT TOLERATE AEB HR 140-160. HR SUSTAINING IN THE 140'S, DR SARMIENTO CALLED, PT PLACED ON CARDIZEM GTT IN ADDITION TO AMIO GTT PT ALREADY ON, DR BARAHONA ROUNDS THIS AFTERNOON, RN EXPLAINS THAT PT HR GOES IN THE 140-160 RANGE WHEN OFF SEDATION , IT IS CONCLUDED THAT PT IS NOT READY FOR CPAP TODAY. ANANTH TURNER @ BEDSIDE [id number], QUESTIONS ANSWERED, NO COMPLICATIONS NOTED, WILL CONT TO MONITOR.
--- NOTE | 2020-03-04 23:22 | NUR ---
UPON INITIAL ASSESSMENT, PT WAS TACHYCARDIC WITH HR 120S-130S AND RESTLESS IN THE BED. SHE WAS MOVING HER EXTREMITIES AND BITING ET TUBE. DID NOT PERFORM SEDATION VACATION DUE TO PATIENT'S AGITATION AND TACHYCARDIA. INCREASED VERSED GTT TO HELP PATIENT RELAX. RESPOSITIONED PT IN BED. SBP 130S. TITRATED DOWN LEVOPHED GTT. SBP NOW 110S-120S. HR 90S-100S. PT RESTING CALMLY IN BED WITH FENTANYL AND VERSED GTT FOR SEDATION MANAGEMENT. [id number] - SPOKE WITH PT'S ANANTH MEHTA. UPDATED PROVIDED ON PATIENT'S CONDITION. ALL QUESTIONS ANSWERED. SPOKE FOR ROUGHLY 15 MINUTES WITH TYSON.
[2020-03-05] VITALS (52 sets, daily range): BP systolic 88–180; BP diastolic 42–97
--- NOTE | 2020-03-05 03:11 | NUR ---
PATIENT REMAINS SEDATED WITH VERSED AND FENTANYL FOR VENT MANAGEMENT. SHE HAS BEEN LESS RESTLESS WITH INCREASE IN VERSED GTT. AMIODARONE AND LEVOPHED GTTS INFUSING FOR HR AND BP MANAGEMENT. SINCE PT IS NOW RESTING CALMLY, HR IS 60S-70S. SHE REMAINS IN AFIB. PT HAD FEVER OF 101.2 AND THEN 99.6 (AXILLARY). TYENOL GIVEN. PARTIAL BED BATH GIVEN. REPOSITIONED TO PREVENT SKIN BREAKDOWN. LIN WITH ADEQUATE URINE OUTPUT. TF VIA OGT; TOLERATING WELL WITH LOW RESIDUALS. ORAL CARE PROVIDED. SMALL TO MEDIUM AMOUNT OF TRACHEAL SECRETIONS. DURING INTIAL ASSESSMENT, PATIENT DID NOT FOLLOW COMMANDS. DURING SUBSEQUENT ASSESSMENT, PATIENT DID FOLLOW SIMPLE COMMANDS AND NODDED HER HEAD TO YES/NO QUESTIONS. PROGRESSING SLOWLY TOWARD POC GOALS. WILL CONTINUE TO MONITOR FURTHER.
[2020-03-05 05:18] LABS: ALBUMIN 1.2 g/dL (3.4-5.0); CALCIUM 7.7 mg/dL (8.5-10.1); CREATININE 0.8 mg/dL (0.6-1.0); PHOSPHORUS 4.3 mg/dL (2.5-4.9)
[2020-03-05 05:21] LABS: POTASSIUM 4.4 mmol/L (3.5-5.1)
[2020-03-05 05:32] LABS: HEMATOCRIT 24.8 % (37.0-47.0); HEMOGLOBIN 8.5 gm/dL (12.0-15.0); MCH 30.6 pg (26.0-34.0); MCHC 34.1 g/dL (28.0-37.0); MCV 89.6 fL (80.0-100.0); RBC 2.77 mil/uL (4.20-5.00); RDW 14.3 % (10.5-14.5); WBC 5.1 thou/uL (4.0-11.0)
[2020-03-05 11:16] LABS: BE(vivo) 5.2 mmol/L (-2 to +3); HCO3 29.8 mmol/L (22.0-26.0); PCO2 43.9 mmHg (35.0-45.0); PO2 96.7 mmHg (80.0-100.0); pH 7.449 (7.360-7.450); sO2 97.6 % (92.0-98.0)
--- NOTE | 2020-03-05 15:41 | NUR ---
pt remains intubated with possible weaning trials. tf for nutritional support. pt on iv gtts for bp. will cont following as needed for dc needs.
--- NOTE | 2020-03-05 18:09 | NUR ---
Patient did fair on weaning trials this AM and maintained stable vitals. Patient anxious upon sedation vacation and reluctantly follows commands. Will continue to perform daily CPAP trials. Patient slowly progressing towards goals to extubation. Nurse spoke to Lima roman, and updated her on patients plan of care.
--- NOTE | 2020-03-05 21:20 | NUR ---
LEVOPHED STARTED ON PATIENT DUE TO LOW BLOOD PRESSURES PRIMARILY DUE TO ADEQUATE SEDATION MEDICATIONS. GTT STARTED AT 1MG/HR TO GOOD EFFECT.
[2020-03-06] VITALS (62 sets, daily range): BP systolic 69–157; BP diastolic 34–111
[2020-03-06 06:20] LABS: HEMATOCRIT 22.8 % (37.0-47.0); HEMOGLOBIN 7.7 gm/dL (12.0-15.0); MCH 30.3 pg (26.0-34.0); MCHC 33.9 g/dL (28.0-37.0); MCV 89.3 fL (80.0-100.0); RBC 2.55 mil/uL (4.20-5.00); RDW 13.9 % (10.5-14.5)
[2020-03-06 06:48] LABS: ALBUMIN 1.1 g/dL (3.4-5.0); CALCIUM 7.5 mg/dL (8.5-10.1); CREATININE 0.7 mg/dL (0.6-1.0); POTASSIUM 3.6 mmol/L (3.5-5.1)
--- NOTE | 2020-03-06 08:01 | NUR ---
ASSUMED PATIENT CARE AT 1845. PATIENT BREATHING FINE ON VENTILATOR EVIDENCED BY ASSESSMENT AND CONTINUOUS SATURATION MONITORING. MEDICATIONS TITRATED TO PROVIDE SEDATION WITHOUT HYPOTENSION. PROBABLE CPAP TRIAL LATER TODAY. CONTINUE PLAN OF CARE.
--- NOTE | 2020-03-06 16:10 | NUR ---
ASSUMED CARE @ 0700 03/06/20, PT ASSESSMENTS AND VSS COMPLETE PER ICU PROTOCOL. PT ENCOUNTERED ON FENTANYL AND VERSED GTT. SEDATION VACATION DONE @ 0830, PT ABLE TO FOLLOW COMMANDS. SEDATION OFF AGAIN @ 1150, PT ETT KEPT COMING OFF, DUE TO EQUIPMENT FAULT, DR BARAHONA INFORMED, DR BARAHONA GAVE THE ORDER TO EXTUBATE PT, PT EXTUBATED @ 1337, RN GIVEN THE ORDER TRANSFER PT TO CCU. REPORT GIVEN TO JAMES MADRID. PT TRANSFERRED TO [facility] @ 1500. NO COMPLICATIONS NOTED. ANANTH LUDWIG, PT'S NIECE NOTIFIED.
--- NOTE | 2020-03-06 17:57 | NUR ---
PT ARRIVED TO UNIT FROM ICU AT APPROX 1500. PT AWAKE, ORIENTED. DROWSY. FRIEND AT BEDSIDE WITH PT. PT NPO POST EXTUBATION TODAY. SPEECH TO EVAL PT IN MORNING. MOUTH SWABS FREQUENTLY. O2 NC 4L, DENIES SOB. VOICE HOARSE AND DRY D/T INTUBATION TUBING. RATES CONTROLLED ON TELE REMAINING AFIB. DENIES NEEDS AT THIS TIME.
[2020-03-07 04:14] VITALS: BP 135/67
[2020-03-07 05:01] LABS: ALBUMIN 1.3 g/dL (3.4-5.0); CALCIUM 7.7 mg/dL (8.5-10.1); CREATININE 0.7 mg/dL (0.6-1.0); PHOSPHORUS 4.2 mg/dL (2.5-4.9); POTASSIUM 3.3 mmol/L (3.5-5.1)
--- NOTE | 2020-03-07 07:43 | NUR ---
ASSUMED PATIENT CARE AT 1845. VITAL SIGNS STABLE WITH PATIENT HAVING NO COMPLAINTS OF PAIN OR NAUSEA. BREATHING STABLE ON NASAL CANNULA EVIDENCED BY ASSESSMENTS AND CONTINUOUS SATURATION MONITORING. PATIENT IS ALERT TO SELF AND THAT SHE IS IN THE HOSPITAL, BUT STILL SOMEWHAT CONFUSED. PATIENT WAS RELUCTANT TO BE IN ANY OTHER POSITION BUT HIGH FOWLERS. CONTINUE PLAN OF CARE.
[2020-03-07 07:52] LABS: HEMATOCRIT 25.6 % (37.0-47.0); HEMOGLOBIN 8.6 gm/dL (12.0-15.0); MCHC 33.6 g/dL (28.0-37.0); MCV 89.4 fL (80.0-100.0); RBC 2.87 mil/uL (4.20-5.00); RDW 13.8 % (10.5-14.5); WBC 3.6 thou/uL (4.0-11.0)
[2020-03-07 09:15] VITALS: BP 116/48
--- NOTE | 2020-03-07 11:20 | NUR ---
Patient transferred to CCU from ICU. Patient was on vent and now extubated. Therapy ordered and 5N consult in process.
[2020-03-07 12:00] VITALS: BP 114/83
[2020-03-07 16:50] VITALS: BP 97/53
--- NOTE | 2020-03-07 16:50 | NUR ---
ASSUMMED PT CARE AT APPROXIMATELY 0700. PT AWAKE AND ORIENTED X3, FORGETFUL. FREQUENT ORIENTATION PROVIDED. ASSESSMENT CHARTED. FALL PRECAUTIONS IN PLACE. PT DENIES HAVING CHEST PAIN. PT DENIES HAVING SOB. PT DENIES HAVING ACUTE PAIN. VITAL SIGNS STABLE. BLOOD SUGARS STABLE. PT TOLERATING ADVANCED DIET. ENCOURAGING EATING AND DRINKING FLUIDS. FECAL MANAGEMENT TUBE REMOVED. ELECTROLYTE PROTOCOL FOLLOWED. EDUCATED PT ABOUT POC. PT COMFORTABLE IN BED. PT DENIES HAVING FURTHER CONCERNS.
[2020-03-07 20:23] VITALS: BP 91/50
--- NOTE | 2020-03-08 00:18 | NUR ---
Assumed pt care at 1900. A/OX3,very soft spoken but able to make needs known.Denies pain on assessment,but grimacing when repositioning her. Pt has generalized edema allover,elevated on pillows. AFIB on the monitor. Dangelo draining light yellow urine w/o problems. Pt has a scabbing area on left side of tongue,niece reported to freelance copywriter pt bite herself when she passed out at home. Oral intake encouraged though pt is reluctant to. Fall precautions in place,will continue to monitor pt.
[2020-03-08 03:43] VITALS: BP 105/60
--- NOTE | 2020-03-08 04:45 | NUR ---
Assumed pt care at 0100, report obtained from previous nurse. Pt is alert but forgetful. No sign of distress noted in pt. Pt is adequately repositioned. Scheduled meds administered to pt. Pt is stable. Vital signs stable. Continue to monitor pt. No further needs at this time.
[2020-03-08 06:17] LABS: ALBUMIN 1.4 g/dL (3.4-5.0); CREATININE 0.6 mg/dL (0.6-1.0); POTASSIUM 3.5 mmol/L (3.5-5.1)
[2020-03-08 09:30] VITALS: BP 110/65
[2020-03-08 12:00] VITALS: BP 117/74
[2020-03-08 16:55] VITALS: BP 105/63
--- NOTE | 2020-03-08 18:45 | NUR ---
ASSUMED CARE PT SHIFT CHANGE. ASSESSMENTS CHARTED.MEDS GIVEN PER OCT. PT ALERT, ORIENTED X3 FORGETFUL AT TIMES. PT WORKED WITH PT/OT/SPEECH-REFER TO NOTES. LOOSE STOOLS X2 THIS SHIFT. LIN REMAINS IN PLACE, PT DIURESING ADEQUATELY. APPETITE FAIR THIS SHIFT. ENCOURAGED TO EAT SUPPLEMENTS. PLAN FOR EGD TOMORROW. PT AND FAMILY AWARE, FAMILY UPDATED. PT CURRENTLY RESTING COMFORTABLY IN BED, EATING DINNER. DENIES CONCERNS. WILL PASS ON REPORT TO NOC RN.
[2020-03-08 20:45] VITALS: BP 91/48
[2020-03-09 00:14] VITALS: BP 100/58
[2020-03-09 04:45] VITALS: BP 104/66
[2020-03-09 05:47] LABS: HEMATOCRIT 25.2 % (37.0-47.0); HEMOGLOBIN 8.7 gm/dL (12.0-15.0); MCH 30.3 pg (26.0-34.0); MCHC 34.4 g/dL (28.0-37.0); MCV 88.2 fL (80.0-100.0); RBC 2.85 mil/uL (4.20-5.00); WBC 4.4 thou/uL (4.0-11.0)
[2020-03-09 05:55] LABS: ALBUMIN 1.5 g/dL (3.4-5.0); CREATININE 0.8 mg/dL (0.6-1.0); PHOSPHORUS 4.3 mg/dL (2.5-4.9)
[2020-03-09 06:24] LABS: POTASSIUM 2.7 mmol/L (3.5-5.1)
--- NOTE | 2020-03-09 07:56 | NUR ---
patient care were assumed at shift change. patient was assessed and meds were passed. patient is npo after midnight due to an egd today. the patient can communicate her needs if she is given enough time. hourly round were done and the bed is in a low and locked position
--- NOTE | 2020-03-09 08:43 | NUR ---
ASSUMED CARE OF PT AT SHIFT CHANGE, ALERT AND ORIENTED X 3, SLIGHTLY FORGETFUL;STATES SHE HAS NOT AMBULATED YET, SO AMB STATUS UNK AT THIS TIME, WILL USE MAX ASSIST SHOULD SHE NEED TO GET UP, TURN QTWO HOUR FOR SKIN INTEGRITY AND COMFORT. CAN USE THE CALL LIGHT, FREQ CHECKS. REPORTS OF NSR YET AFIB AND CARDIOLOGY AWARE, K+ WAS LOW THIS A.M. ORAL GIVEN PRIOR SHIFT. PT NPO SO GIVING REMAINING ELECTROLYTE VIA IV, NPO FOR EGD SCHEDULED THIS A.M.GOT WARM BLANKET. SEE SEPARATE INTERVENTIONS FOR ASSESSMENTS. ENCOURAGED PT TO USE CALL LIGHT FOR ANY NEEDS
[2020-03-09 12:30] VITALS: BP 93/57
--- NOTE | 2020-03-09 13:27 | NUR ---
Patients goal to transfer to 5N. She is not medically stable for transfer today but possibly over weekend. Updated rehab liason and sister. Sister reports valentín her dtr has been designated visitor. She wants to change to her son Rebel Dsouza . Discussed with sister cannot change designated visitor. discussed hospital policy. Updated RN with sons number as she wants him to have informantion. She is agreeable to 5N transfer. If dc over weekend call [phone] the rehab liason for transfer
--- NOTE | 2020-03-09 16:21 | NUR ---
PATIENT HAS BEEN ACCEPTED FOR ACUTE REHAB STAY ON 5N. POTENTIAL ADMISSION OVER WEEKEND OF 03/10-03/11/20. TIFFANY IS ADULT EDUCATION PROFESSIONAL INDUSTRIAL REHABILITATION CONSULTANT. PLEASE CALL HER IF [facility] IS MEDICALLY READY FOR ADMISSION TO REHAB - [phone].
[2020-03-09 17:00] VITALS: BP 106/60
[2020-03-09 19:58] VITALS: BP 90/46
--- NOTE | 2020-03-10 04:01 | NUR ---
PATIENT ALERT AND ORIENTED X4. SLEEPING AT SHIFT CHANGE. BS MONITORED PER ORDER. MEDS CRUSHED PER ORDER. NECTAR THICK LIQUIDS TOLERATED WELL. VOICE REMAINS HOARSE. LAB DRAWN BY THIS NURSE TODAY. MS TELE. DENIES PAIN. COOPERATIVE WITH CARE. RESTING QUIETLY WILL MONITOR.
[2020-03-10 04:47] LABS: ALBUMIN 1.4 g/dL (3.4-5.0); CALCIUM 7.6 mg/dL (8.5-10.1); CREATININE 0.7 mg/dL (0.6-1.0); PHOSPHORUS 3.8 mg/dL (2.5-4.9)
[2020-03-10 04:55] LABS: POTASSIUM 2.5 mmol/L (3.5-5.1)
[2020-03-10 05:48] VITALS: BP 110/68
[2020-03-10 09:30] VITALS: BP 109/57
--- NOTE | 2020-03-10 11:05 | NUR ---
PT ASSESSED, VSS, POC REVIEWED, PT VERBALIZED UNDERSTANDING, DR ESCALANTE IN TO SEE PT, PT STILL HAVING LIQUID STOOLS, CHANGED AND BARRIER CREAM APPLIED TWICE SO FAR THIS AM, PT WANTS TO SLEEP NOW, SPOKE WITH PT'S NEPHEW THIS AM TO UPDATE HIM, PT MAY TRANSFER TO 5N TOMORROW BUT NEEDS TO STAY HERE SECONDARY TO DIURESING TODAY.
[2020-03-10 11:56] VITALS: BP 97/62
--- NOTE | 2020-03-10 13:41 | NUR ---
ASSUMED CARE OF PT MID SHIFT, REMOVED HER FROM BED MCCRARY, HAVING BM'S THAT ARE TINY AND JELLY LIKE, LIGHT BROWN, NOT ENOUGH FOR A STOOL SPECIMEN THIS TIME. WILL CONTINUE TO MONITOR. LIKES ICE CHIPS, REPORTED MINIMAL APPETITE. DID START CRYING, FEELS LIKE SHE'S 'GOING THROUGH A LONG HAUL' YET ROLLING BETTER WITH BED MCCRARY USE, ENCOURAGED HER WITH THAT AND TO USE CALL LIGHT FOR ANY NEEDS. SEE SEPARATE INTERVENTIONS FOR ASSESSMENTS. RILEY STILL TO DD.
--- NOTE | 2020-03-10 14:53 | HC ---
[place] [address] CONSULTATION Name: KENYA RIVER Lynsey Room #: 205-P [facility] IN M.R.#: [id number] Admission: 02/23/20 Attend Phys: Del Lira Discharge: Date of : 57 Report #: [id number] THIS REPORT FOR: cc: ROSALINA - Cristina family physician/PCP ROSALINA - Cristina family physician/PCP Bradley Flores MD ~ CC: [facility] physician/PCP Del Lira DATE OF SERVICE: 02/29/2020 SUBJECTIVE: The patient is intubated, nonresponsive, unable to obtain complaints or history. OBJECTIVE: VITAL SIGNS: Blood pressure 84/46, heart rate is 109, temperature 98.1. LUNGS: Coarse. EXTREMITIES: Lower extremity; +3 edema. Bilateral knee swelling is noted. LABORATORY DATA: White count 2.2, hemoglobin 9.6, platelets 33. ASSESSMENT AND PLAN: 1. Pancytopenia, most likely secondary to sepsis. I agree with management at this point. 2. History of lymphoma. No evidence of recurrence of lymphoma. <ELECTRONICALLY SIGNED> By: Bradley Flores MD 03/10/20 1453 1441 1456 Bradley Flores MD /nt
[2020-03-10 16:00] VITALS: BP 104/53
--- NOTE | 2020-03-10 17:21 | NUR ---
PHYSICIAN: LATOYA STEWARD ASKS FOR SOMEONE TO CALL AND ANSWER SOME QUESTIONS: [phone] TOMORROW
[2020-03-10 18:19] VITALS: BP 94/54
[2020-03-11 04:00] VITALS: BP 111/55
--- NOTE | 2020-03-11 05:27 | NUR ---
PATIENT ALERT AND ORIENTED X4. REMAINS ON BEDREST THROUGHOUT THE NIGHT. BS MONITORED PER ORDER. MEDS CRUSHED PATIENT STILL HAS TROUBLE SWALLOWING FROM INTUBATION. RECEIVED ADDITIONAL POTASSIUM DURING THE NIGHT. LIQUID STOOL X2. DENIES PAIN. COOPERATIVE WITH CARE. RESTING QUIETLY. WILL MONITOR.
[2020-03-11 06:04] LABS: ALBUMIN 1.5 g/dL (3.4-5.0); CREATININE 0.6 mg/dL (0.6-1.0); PHOSPHORUS 3.1 mg/dL (2.5-4.9); POTASSIUM 3.1 mmol/L (3.5-5.1)
[2020-03-11 08:19] VITALS: BP 93/55
--- NOTE | 2020-03-11 10:52 | O ---
[facility] [place] [address] OPERATIVE REPORT Name: KENYA RIVER Room #: 205-P [facility] IN .R.#: [id number] Admission: 02/23/20 Attend Phys: Del Lira Discharge: Date of : 57 Report #: [id number] THIS REPORT FOR: cc: ROSALINA - No family physician/PCP ROSALINA - Cristina family physician/PCP Emanuel Reyes MD ~ CC: [facility] physician/PCP Del Lira DATE OF SERVICE: 03/10/2020 PREOPERATIVE DIAGNOSES: Hoarseness post-extubation. POSTOPERATIVE DIAGNOSES: Hoarseness post-extubation. OPERATION PERFORMED: Direct flexible nasopharyngoscopy. DESCRIPTION OF PROCEDURE: In the patient's hospital room, anesthesia was achieved via 1% Kushal-Synephrine and 4% lidocaine nasal spray. After an appropriate period the flexible laryngoscope was introduced through the nares, both sides of the nose were examined. The left nose was chosen because of a deviated septum to the right. There were no polyps, no sinus percussive tenderness and no active mucopurulence. Nasopharynx was clear. Oral cavity and oropharynx were normal. Hypopharynx was examined showing mobile vocal cords. There is edema and erythema of the glottis secondary to recent extubation. There is no mass, no eschar. Oral cavity had also shown some excoriation with eschar on the left lateral tip of the tongue also due to recent intubation trauma. The laryngoscope was removed. The patient tolerated the procedure well. There were no complications. Blood loss was none. <ELECTRONICALLY SIGNED> By: Emanuel Reyes MD 03/11/20 1052 1057 [id number] Emanuel Reyes MD /nt
--- NOTE | 2020-03-11 10:52 | HC ---
[facility] [place] [address] CONSULTATION Name: KENYA RIVER Room #: [facility] IN .R.#: [id number] Admission: 02/23/20 Attend Phys: Del Lira Discharge: Date of : 57 Report #: [id number] THIS REPORT FOR: cc: ROSALINA - Cristina family physician/PCP ROSALINA - Cristina family physician/PCP Emanuel Reyes MD ~ CC: [facility] physician/PCP Del Lira DATE OF SERVICE: 03/10/2020 SURGEON: Emanuel Reyes MD REASON FOR CONSULTATION: Hoarseness. HISTORY OF PRESENT ILLNESS: The patient is a 65-year-old female admitted via the Emergency Department on 02/23/2020, presenting with sepsis requiring intubation and mechanical ventilation. She was just recently extubated about 48 hours ago, and I have been called to see her for hoarseness post-extubation. Prior to this, she tells me she had no voice problems. PAST MEDICAL HISTORY: Consistent with rheumatoid arthritis. She is followed by a [facility] and has been on immunosuppression with prednisone 5 mg daily as well as Orencia with the last infusion over a month ago. Past history is also significant for lymphoma in 1999, treated with chemotherapy in 2001, stopping in 2016. She has elevated liver enzymes significantly, vitamin B12 deficiency, depression, hypertension. MEDICATIONS: Reviewed in her MAR. ALLERGIES: None. REVIEW OF SYSTEMS: She denies any significant pain in her mouth. She does complain of hoarseness. A 12-point review of systems is otherwise unremarkable. PHYSICAL EXAMINATION: GENERAL: Shows a well-developed 65-year-old female, seen in her hospital room. She is sitting up just finishing her lunch. She is awake, conversant, and cogent. VITAL SIGNS: Temperature of 98.4, blood pressure 109/57. She is 96% on room air, respirations are 20. HEENT: She is normocephalic. Pupils are equal, round, reactive to light. Nasal exam shows a deviated septum to the right. There were no polyps, no sinus percussive tenderness. Oral cavity shows an endotracheal tube injury on the left lateral tongue with eschar in place. This is slightly swollen. It does [facility] [address] [place] [address] CONSULTATION Name: KENYA RIVER Room #: 205-P [facility] IN .R.#: [id number] Admission: 02/23/20 Attend Phys: Del Lira Discharge: Date of : 57 Report #: [id number] not appear infected. NECK: No adenopathy, no masses, no thyromegaly. Trachea is midline. Hypopharynx was examined with flexible endoscopy after topical Kushal-Synephrine and lidocaine. This demonstrates mobile vocal cords. The patient does have some edema and erythema present consistent with intubation trauma. ASSESSMENT: 1. Intubation trauma with expected hoarseness. I suspect with time this will improve. I would recommend speech therapy consultation to improve. 2. Left lateral mobile tongue injury, tip of tongue secondary to endotracheal tube trauma, eschar in place. We will begin Peridex oral rinse. This should heal without problem. 3. Septic shock with bacteremia group A strep, followed by Infectious Disease. 4. Acute kidney injury, resolved. 5. Atrial fibrillation, controlled. 6. Hypokalemia. 7. Immunocompromised. 8. Rheumatoid arthritis. PLAN: 1. I have discussed the following with the patient. I would recommend speech therapy consultation. I will plan to follow up with her as an outpatient in 3-4 weeks. I expect that this will resolve with time and speech therapy for her hoarseness. 2. Tongue injury secondary to intubation trauma. Peridex oral rinse 15 mL rinse b.i.d. Again, this should resolve with time. I have discussed the above with the patient. I will not plan to follow along with you, but I am available for any change in clinical status. I appreciate the consultation. <ELECTRONICALLY SIGNED> By: Emanuel Reyes MD 03/11/20 1052 1045 1122 Emanuel Reyes MD /nt
[2020-03-11 11:48] VITALS: BP 110/61
[2020-03-11 16:13] VITALS: BP 92/55
--- NOTE | 2020-03-11 19:31 | NUR ---
ASSUMED CARE OF PT AT SHIFT CHANGE. ASSESSMENTS CHARTED. MEDS GIVEN PER OCT. PT A&OX4, NO C/O PAIN. LIN IS IN PLACE. PT HAS EATEN/DRANK VERY LITTLE TODAY. NEPHEW STATED SHE LIKES CHOCOLATE MILK, SO MAY TRY SOME CHOCOLATE SUPPLEMENT. PLAN TO GO TO 5N TOMORROW. WILL CONTINUE TO MONITOR AND FOLLOW POC.
[2020-03-11 20:00] VITALS: BP 97/54
[2020-03-12 00:03] VITALS: BP 99/52
--- NOTE | 2020-03-12 03:14 | NUR ---
ASSESSED AT START OF SHIFT 0. PT RESTING WELL IN BED. DENIES SOA, PAIN, N/V. MEDS GIVEN CRUSHED IN THICK LIQUID SERAFIN IT WELL. STILL HAVE SORE THROAT FROM INTUBATION AND SOFT VOICE. 99% ON RA. FOLLEY INTACT AND DRAINING. PIC IN PLACE AND ABX GIVEN. FALL PREC IN PLACE. BLOOD SUGAR MONITORED WILL CONT WITH POC TILL EOS.
[2020-03-12 04:08] VITALS: BP 109/69
[2020-03-12 04:46] LABS: ALBUMIN 1.6 g/dL (3.4-5.0); CALCIUM 7.6 mg/dL (8.5-10.1); CREATININE 0.7 mg/dL (0.6-1.0); PHOSPHORUS 3.4 mg/dL (2.5-4.9)
[2020-03-12 04:48] LABS: POTASSIUM 2.2 mmol/L (3.5-5.1)
[2020-03-12 07:45] VITALS: BP 109/69
[2020-03-12 12:00] VITALS: BP 94/54
[2020-03-12 15:45] VITALS: BP 96/59
--- NOTE | 2020-03-12 16:21 | NUR ---
PT CARE ASSUMED AT 0700. ASSESSMENTS CHARTED. MEDICATION CHARTED. PT HAS POOR APPETITE. SOFT BP. NEED TO ENCOURAGE PT TO TAKE MEDICINE. RILEY. ACCU Q6. REHAB POSSIBLY TOMORROW ONCE K+ IS CORRECTED.
[2020-03-12 16:37] LABS: CALCIUM 7.5 mg/dL (8.5-10.1); CREATININE 0.7 mg/dL (0.6-1.0)
[2020-03-12 16:39] LABS: POTASSIUM 9.3 mmol/L (3.5-5.1)
[2020-03-12 17:06] LABS: CALCIUM 7.9 mg/dL (8.5-10.1); CREATININE 0.7 mg/dL (0.6-1.0)
[2020-03-12 17:07] LABS: POTASSIUM 2.7 mmol/L (3.5-5.1)
[2020-03-12 20:33] VITALS: BP 142/120
[2020-03-13] VITALS (9 sets, daily range): BP systolic 77–97; BP diastolic 44–55
--- NOTE | 2020-03-13 05:08 | NUR ---
PROGRESS PT NOT PROGRESSING REFUSED MEDS AND ANY LIQUIDS. IVF;S RUNNING FOR HYDRATION AND FLUID BALANCE. PT KEEPS TAKING GOWN AND EQUIPMENT OFF REFUSING TO EAT OR DRINK ANYTHING. VERBALIZES THINGS THAT USED TO MOTTER TO HER. IV DC'D BUT RESTARTED IN LEFT UPPER CHEST. CONTINUE POC.
[2020-03-13 06:20] LABS: ALBUMIN 1.7 g/dL (3.4-5.0); CALCIUM 7.6 mg/dL (8.5-10.1); CREATININE 0.7 mg/dL (0.6-1.0); MAGNESIUM 1.7 mg/dL (1.8-2.4); PHOSPHORUS 2.6 mg/dL (2.5-4.9)
[2020-03-13 06:43] LABS: POTASSIUM 2.3 mmol/L (3.5-5.1)
[2020-03-13] MEDS ORDERED: DESYREL150 MG PO (12:49)
[2020-03-13 16:20] LABS: CALCIUM 6.9 mg/dL (8.5-10.1); CREATININE 0.8 mg/dL (0.6-1.0)
[2020-03-13 16:22] LABS: POTASSIUM 2.5 mmol/L (3.5-5.1)
--- NOTE | 2020-03-13 16:48 | NUR ---
SPOKE WITH DR BOJORQUEZ. Pt NOT MEDICALLY READY FOR D/C TO ACUTE REHAB TODAY. POTASSIUM STILL LOW. WILL CONTINUE TO FOLLOW.
--- NOTE | 2020-03-13 17:22 | NUR ---
tenative plan for 5N today pending lab values. Phys reports no plan to transfer to 5N today.
--- NOTE | 2020-03-13 17:28 | NUR ---
PT CARE ASSUMED AT 0700. ASSESSMENTS CHARTED. MEDICATIONS CHARTED. 60 MEQ POTASSIUM DELIVERED IV; K+ 2.5 AT 1600. ADDITIONAL 60 MEQ ORDERED. PT IS MORE ALERT. APPETITE IS BETTER. PT HAS RT UA PICC 3 LUMEN. POC IS TRANSFER TO REHAB ONCE K+ IS BETTER.
[2020-03-14 00:15] VITALS: BP 85/43
[2020-03-14 04:45] VITALS: BP 83/48
--- NOTE | 2020-03-14 05:03 | NUR ---
SLEPT MOST OF SHIFT. TURNS SELF WITHOUT ASSISTANCE. WORKING ON GOALS AND PLAN OF CARE FOR NOC. PROGRESSING SLOWLY TOWARDS DISCHARGE GOALS. MONITOR ELECTROLYTES. CONTINUE TO ASSES CLOSELY. AWAITING TRANSFER TO REHAB.
[2020-03-14 06:03] LABS: HEMATOCRIT 24.2 % (37.0-47.0); HEMOGLOBIN 8.2 gm/dL (12.0-15.0); MCH 30.2 pg (26.0-34.0); MCHC 33.8 g/dL (28.0-37.0); MCV 89.5 fL (80.0-100.0); RBC 2.71 mil/uL (4.20-5.00); RDW 14.8 % (10.5-14.5); WBC 4.9 thou/uL (4.0-11.0)
[2020-03-14 06:18] LABS: ALBUMIN 1.5 g/dL (3.4-5.0); CALCIUM 8.1 mg/dL (8.5-10.1); CREATININE 0.6 mg/dL (0.6-1.0); PHOSPHORUS 2.5 mg/dL (2.5-4.9); POTASSIUM 3.1 mmol/L (3.5-5.1)
[2020-03-14 08:06] VITALS: BP 86/56
[2020-03-14 11:24] VITALS: BP 97/51
--- NOTE | 2020-03-14 14:10 | NUR ---
Met with nephew at bedside. Discussed cont plan for [facility]. Family in agreement. Patient not stable for 5[facility] today.
[2020-03-14 16:54] VITALS: BP 101/55
--- NOTE | 2020-03-14 19:43 | NUR ---
ASSUMED CARE AT SHIFT CHANGE, ALERT AND ORIENTED BUT FORGETFUL. VSS AND AFEBRILE. K+ REPLACED PER DR JENSEN ORDERS, LIN D/CIED, AND PATIENT TOLERATED PO WELL. POOR APPETITE, AND PATIENT ENCOURAGED TO ORDER WHAT SHE LIKES TO EAT. WILL CONTINUE WITH POC, AND TRANSFER TO REHAB TOMM.
[2020-03-14 20:55] VITALS: BP 109/52
[2020-03-14 20:58] LABS: CALCIUM 7.7 mg/dL (8.5-10.1); CREATININE 0.7 mg/dL (0.6-1.0)
[2020-03-14 21:04] LABS: POTASSIUM 4.2 mmol/L (3.5-5.1)
[2020-03-15 04:28] VITALS: BP 114/63
[2020-03-15 05:11] LABS: GLYCOHEMOGLOBIN (HGB A1C) 5.4 % (4.8-5.6)
--- NOTE | 2020-03-15 05:31 | NUR ---
ASSUMED PT CARE AT 1900. PT IS ALERT AND ORIENTED. NO SIGN OF DISTRESS NOTED IN PT. PT DENIES ANY PAIN. ASSESSMENT COMPLETED AND DOCUMENTED. PT IS ASSISTED WITH PCS TO BEDSIDE COMMODE. PT IS UNSTEADY. FALL PRECAUTION IN PLACE. SCHEDULED MEDS ADMINISTERED TO PT. TOLERATED PO INTAKE. PT IS WAITING ON INPATIENT REHAB. PT IS STABLE THROUGH THE NIGHT. CONTINUE NURSING POC
[2020-03-15 05:56] LABS: CALCIUM 7.8 mg/dL (8.5-10.1); CREATININE 0.6 mg/dL (0.6-1.0); MAGNESIUM 1.6 mg/dL (1.8-2.4); POTASSIUM 4.2 mmol/L (3.5-5.1)
[2020-03-15 07:30] VITALS: BP 133/59
[2020-03-15 16:20] VITALS: BP 112/57
--- NOTE | 2020-03-15 17:10 | NUR ---
ASSUMED CARE AT SHIFT CHANGE, ALERT AND ORIENTED X4, LOW GRADE FEVER TODAY, AND TACHYCARDIC. DR JENSEN NOTIFIED, AND NEW ORDERS APPLIED. OTHER VSS, RSTING ON AND OFF. ASSESSMENT DOCUMENTED. PROGRESSING TOWARDS GOALS AND WILL CONTINUE WITH POC.
[2020-03-15 20:15] VITALS: BP 108/49
[2020-03-15 20:26] VITALS: BP 108/49
--- NOTE | 2020-03-16 03:58 | NUR ---
Assumed pt care at 190. Pt is laying in bed. No sign of distress noted in pt. Fall precaution in place. Denies any pain. Vital signs completed and elevated temperature was noted. Tylenol administered for elevated temp. Blood cultures ordered by ID and vancomyocin started. Assessment completed and documented. Scheduled meds administered to pt. Tolerated PO intake with the exception of coughing upon taking thin liquids. Continue to monitor temp. Nursing POC. No acute events overnight. Continue to monitor pt.
[2020-03-16 04:30] VITALS: BP 117/72
[2020-03-16 05:22] LABS: HEMATOCRIT 25.2 % (37.0-47.0); HEMOGLOBIN 8.5 gm/dL (12.0-15.0); MCH 30.4 pg (26.0-34.0); MCHC 33.6 g/dL (28.0-37.0); MCV 90.6 fL (80.0-100.0); PLATELET COUNT 129 thou/uL (150-400); RBC 2.78 mil/uL (4.20-5.00); RDW 15.9 % (10.5-14.5); WBC 5.1 thou/uL (4.0-11.0)
[2020-03-16 06:46] LABS: ALBUMIN 1.4 g/dL (3.4-5.0); CALCIUM 7.5 mg/dL (8.5-10.1); CREATININE 0.6 mg/dL (0.6-1.0); MAGNESIUM 1.4 mg/dL (1.8-2.4); POTASSIUM 3.7 mmol/L (3.5-5.1); TOTAL BILIRUBIN 0.3 mg/dL (0.2-1.0); TOTAL PROTEIN 4.7 g/dL (6.4-8.2)
[2020-03-16 07:55] VITALS: BP 95/49
--- NOTE | 2020-03-16 09:18 | EKG ---
[facility] [place] [address] ELECTROCARDIOGRAM REPORT Name: KENYA RIVER Room #: 205- ADM IN M.R.#: [id number] Admission: 02/23/20 Attend Phys: Del Lira Discharge: Date of : 57 Report #: [id number] THIS REPORT FOR: cc: ROSALINA - No family physician/PCP FAM - No family physician/PCP Fuad Ventura MD [facility] THIS REPORT FOR: //name// [facility] Test Date: 2020-03-15 Test Time: 15:37:53 Pat Name: KENYA RIVER Department: Room: 205 Gender: F Firewall Engineer: Vidya PADILLA : 1955 Requested By: Ric Hardy Order Number: [id number] MD: Fuad Ventura Measurements Intervals [place] Rate: 104 P: WI: QRS: 15 QRSD: 90 T: 59 QT: 355 QTc: 467 Interpretive Statements Atrial fibrillation Otherwise no significant abnormality Compared to ECG 02/23/2020 16:34:40 Prolonged QT interval no longer present Electronically Signed On 03-16-2020 9:17:59 CDT by Fuad Ventura [email or web address] <ELECTRONICALLY SIGNED> By: Fuad Ventura MD, [facility] 03/16/20 0917 1537 1537 Fuad Ventura MD, [facility] /EPI
[2020-03-16 09:37] VITALS: BP 79/40
--- NOTE | 2020-03-16 12:01 | NUR ---
[facility] acute rehab can accept the pt once medically stable. Pt with fever and bp issues yesterday. Video swallow pending. Should the pt be medically ready for rehab over the weekend [facility] will have a bed for her. Unit RN will need to call the liason to coordinate at [phone].
[2020-03-16 14:33] LABS: ABSOLUTE NEUTROPHILS 2.1 thou/uL (1.4-8.2)
[2020-03-16 14:34] LABS: ANISOCYTOSIS 2+; LARGE PLATELETS OCCASIONAL; POLYCHROMASIA OCCASIONAL
--- NOTE | 2020-03-16 15:30 | HC ---
[facility] [place] [address] CONSULTATION Name: KENYA RIVER Room #: [facility] IN M.R.#: [id number] Admission: 02/23/20 Attend Phys: Del Lira Discharge: Date of : 57 Report #: [id number] THIS REPORT FOR: cc: ROSALINA - Cristina family physician/PCP ROSALINA - Cristina family physician/PCP Ricci Alejandro MD ~ CC: ROSALINA physician/PCP Del Lira DATE OF SERVICE: 03/07/2020 HISTORY OF PRESENT ILLNESS: The patient is a 65-year-old white female who was admitted with mental status changes and acute respiratory failure. She was noted to have severe sepsis with toxic shock, was initially severely confused. She was intubated and mechanically ventilated for 9 days and extubated on 03/06/2020. She had hypotension, AFib with rapid ventricular response, anasarca, acute renal insufficiency, toxic metabolic encephalopathy, elevated LFTs with shock liver with significant anemia with hemoglobin dropped from 14.4 down to 8.6. COVID negative. GI is involved and has recommended an EGD when stable with respect to the anemia. She has multiple partner management consultant physicians involved. We are seeing her in Rehabilitation Medicine consultation. PRIOR MEDICAL HISTORY: Includes rheumatoid arthritis and lymphoma, status post chemotherapy, history of depression. PAST SURGICAL HISTORY: Includes carpal tunnel release. HABITS: Past tobacco abuse. MEDICATIONS: Please see the full medication listing. ALLERGIES: No known drug allergies. SOCIAL HISTORY: Previously living in a house alone, 4-5 steps in. Otherwise, can stand one floor, does have a basement with laundry, but does need to go down there. She was premorbidly retired driving. She has a sister in [place]. There is a friend, Donita who is currently here from [place]. There are nieces and nephews closely involved as well. The friend, Donita indicates that he would be able to be family that could take turns as far as assisting her. REVIEW OF SYSTEMS: She does have dysphagia. She is on a pureed diet with honey thickened liquids. She did not offer any current complaints of chest pain, shortness of breath or abdominal discomfort. PHYSICAL EXAMINATION: GENERAL: A 65-year-old white female, in no obvious distress. [facility] [address] [place] [address] CONSULTATION Name: KENYA RIVER Room #: [address] [place] [address] IN M.R.#: [id number] Admission: 02/23/20 Attend Phys: Del Lira Discharge: Date of : 57 Report #: [id number] VITAL SIGNS: Last recorded temperature 97.5, pulse 90, respirations 18, blood pressure 116/48. NEUROLOGIC: She is alert, definite decreased attention, but will follow basic 1 step commands. Speech is somewhat mumbling. Tends to defer to her friend. She will follow some basic 1 step commands with definite latency. EOMs appeared to be full. She has some chronic arthritic changes of her hands. She does have 1+ distal edema of her upper extremities and lower extremities. Strength is probably a grade 3 to 3+. Decreased endurance. She is currently needing 2 people to scoot to the edge of the bed, was noted to sit on the edge of the bed per the friend who was in here with significant assistance. ASSESSMENT: A 65-year-old white female with the following problem list: 1. Toxic metabolic encephalopathy. 2. Critical illness myopathy. 3. Severe sepsis with toxic shock and prolonged mechanical ventilation. 4. Pancytopenia. 5. Anemia with gastrointestinal involved and plans for an EGD when stable. 6. Elevated liver function tests with shock liver. 7. Anasarca. She probably has marked 2+ rather than 1+ upper and lower extremity edema. 8. Acute renal insufficiency. 9. Prior history of rheumatoid arthritis. 10. Prior history of lymphoma, status post chemotherapy. PLAN: Would anticipate the patient should be a good [address] [place] [address] inpatient rehabilitation candidate as she further medically stabilizes. Endurance is low and she has significant weakness and functional deficits, but we will be glad to work with you and follow along with you as she further medically stabilizes. <ELECTRONICALLY SIGNED> By: Ricci Alejandro MD 03/16/20 1530 1233 [id number] Ricci Alejandro MD /[facility]
[2020-03-16 15:37] LABS: URINE BILIRUBIN NEGATIVE (Negative); URINE BLOOD NEGATIVE (Negative); URINE CLARITY CLEAR; URINE COLOR YELLOW; URINE GLUCOSE-RANDOM* NEGATIVE (Negative); URINE KETONES NEGATIVE (Negative); URINE LEUKOCYTES-REFLEX NEGATIVE (Negative); URINE NITRITE-REFLEX NEGATIVE (Negative); URINE PROTEIN (DIPSTICK) NEGATIVE (Negative); URINE SPECIFIC GRAVITY 1.015 (1.005-1.035); URINE UROBILINOGEN 0.2 E.U./dl (0.2-1.0)
[2020-03-16 15:40] VITALS: BP 99/44
[2020-03-16 19:40] VITALS: BP 117/51
--- NOTE | 2020-03-16 20:12 | NUR ---
RECEIVED PT'S CARE AROUND 0730; PT. ON BED; ALERT; DURING ASSESSMENT PT. AOX4; FORGETFUL; ELEVATED TEMPERATURE; EDUCATED ABOUT THE IMPORTANCE OF TAKING COVERS OFF; SBP ON THE 70s; DR. JENSEN NOTIFIED; ORDERS RECEIVED; 500 ML BOLUS GIVEN; BP MEDICATIONS HOLD; AM MEDICATIONS GIVEN; MAG REPLACED; THROUGH THE DAY PT. C/O FREEZING; EDUCATED ABOUT THE NEED OF MANTAINING ONE COVER; UPSET; EDUCATED ABOUT POSSIBLE SEIZURES IF TEMPERATURE INCREASES; NO ANSWER BACK; INCONTINENT OF STOOL; BROWN LIQUID STOOL DURING THE AFTERNOON; PER DR. BOB IF PT. CONTINUES WITH LOOSE STOOLS TEST FOR C-DIFF; PASSED ON REPORT; STRAIGH CATH PERFORMED TO OBTAINED URINE SAMPLE; 900 ML OUT; PHYSICIAN NOTIFIED; ORDERS RECEIVED; MONITORING; PICC D/C PER DR. BOB ORDERS; TIP SENT FOR CULTURE; TEMPERATURE BETWEEN 99-100s; MONITORING; ASSESSMENT CHARGED; FOLLOWING POC; PASSED ON REPORT;
[2020-03-17 00:30] VITALS: BP 107/57
[2020-03-17 03:30] VITALS: BP 120/54
[2020-03-17 07:55] VITALS: BP 129/69
--- NOTE | 2020-03-17 08:08 | NUR ---
PATIENT IS ADVANCING IN HER CARE PLAN. VITAL SIGNS MOSTLY STABLE WITH PATIENT HAVING NO COMPLAINTS OF PAIN OR NAUSEA. BREATHING STABLE EVIDENCED BY ASSESSMENT AND SPOT OXYGENATION CHECKS. PATIENT DID EXHIBIT A FEVER EARLY IN SHIFT WHICH WAS TREATED THROUGH MEDICATION AND NON PHARMACOLOGICAL INTERVENTIONS TO GOOD EFFECT. GOOD URINARY OUTPUT THROUGHOUT SHIFT. CONTINUE PLAN OF CARE.
[2020-03-17 11:25] VITALS: BP 108/54
[2020-03-17 14:39] LABS: HEMATOCRIT 21.6 % (37.0-47.0); HEMOGLOBIN 7.2 gm/dL (12.0-15.0); MCH 30.2 pg (26.0-34.0); MCHC 33.3 g/dL (28.0-37.0); MCV 90.6 fL (80.0-100.0); RBC 2.38 mil/uL (4.20-5.00); RDW 16.5 % (10.5-14.5)
[2020-03-17 15:09] LABS: CALCIUM 7.4 mg/dL (8.5-10.1); CREATININE 0.6 mg/dL (0.6-1.0); POTASSIUM 3.1 mmol/L (3.5-5.1)
[2020-03-17 15:30] VITALS: BP 117/55
[2020-03-17 20:20] VITALS: BP 126/60
[2020-03-18 03:50] VITALS: BP 137/98
[2020-03-18 06:05] LABS: CALCIUM 7.7 mg/dL (8.5-10.1); CREATININE 0.6 mg/dL (0.6-1.0); POTASSIUM 3.3 mmol/L (3.5-5.1)
[2020-03-18 08:00] VITALS: BP 123/66
[2020-03-18 11:33] LABS: HEMATOCRIT 20.5 % (37.0-47.0); HEMOGLOBIN 6.9 gm/dL (12.0-15.0)
[2020-03-18 11:45] VITALS: BP 123/73
[2020-03-18 16:00] VITALS: BP 118/61
--- NOTE | 2020-03-18 17:43 | NUR ---
AAOX4. SOFT VOICE. MEDICATED ORDERED. AFIB PER TELE NOTED. NEPHEW AT BEDSIDE. HGB 6.9; SHE DOES NOT WISH TO BE TRANSFUSED, WOULD RATHER SEE WHAT TOMORROW'S NUMBERS SHOW. CONTINENT OF URINE PER BEDPAN. WILL CONTINUE TO FOLLOW CLOSELY.
[2020-03-18 20:15] VITALS: BP 123/65
[2020-03-19 05:30] VITALS: BP 116/55
--- NOTE | 2020-03-19 05:37 | NUR ---
PATIENT IS PROGRESSING SLOWLY IN HER CARE PLAN. VITAL SIGNS STABLE WITH PATIENT HAVING NO COMPLAINTS OF PAIN OR NAUSEA. FULLY ALERT AND ORIENTED, PATIENT IS ABLE TO CALL APPROPRIATELY FOR NEEDS AND PARTICIPATE IN CARE. BREATHING STABLE ON ROOM AIR EVIDENCED BY ASSESSMENT AND SPOT OXYGENATION CHECKS. PATIENT IS ABLE TO REPOSITION SELF IN BED. CONTINUE PLAN OF CARE.
[2020-03-19 08:00] VITALS: BP 137/65
[2020-03-19 08:01] LABS: HEMATOCRIT 22.4 % (37.0-47.0); HEMOGLOBIN 7.5 gm/dL (12.0-15.0)
[2020-03-19 08:18] LABS: CALCIUM 8.3 mg/dL (8.5-10.1); CREATININE 0.6 mg/dL (0.6-1.0); POTASSIUM 3.3 mmol/L (3.5-5.1)
[2020-03-19 08:37] LABS: MCH 30.5 pg (26.0-34.0); MCHC 33.7 g/dL (28.0-37.0); MCV 90.4 fL (80.0-100.0); RBC 2.47 mil/uL (4.20-5.00); RDW 16.3 % (10.5-14.5); WBC 3.8 thou/uL (4.0-11.0)
--- NOTE | 2020-03-19 09:10 | HC ---
[facility] [place] [address] CONSULTATION Name: KENYA RIVER Room #: 205-[facility] IN M.R.#: [id number] Admission: 02/23/20 Attend Phys: Del Lira Discharge: Date of : 57 Report #: [id number] THIS REPORT FOR: cc: ROSALINA Evans family physician/PCP ROSALINA Evans family physician/PCP Saranya Arriola MD ~ CC: ROSALINA physician/PCP Del Lira DATE OF SERVICE: 03/16/2020 ENDOCRINE CONSULTATION NOTE CONSULTING PHYSICIAN: Dr. Hardy. REASON FOR CONSULTATION: Hypotension, suspicion of adrenal insufficiency. HISTORY OF PRESENT ILLNESS: This is a 65-year-old female patient who presented to [facility] on the of this month with altered mental status and was admitted for further care and monitoring as she was found to be in respiratory failure. At that time, she was hemodynamically unstable. The patient was shortly thereafter intubated for the issue of respiratory failure and was managed for the issues of atrial fibrillation with RVR as well as septicemia and pneumonitis, she has also dealt with acute toxic metabolic encephalopathy and acute renal failure. The patient has also suffered some difficulties with anemia and thrombocytopenia. The patient has encountered difficulties maintaining blood pressure stability, which raised the concern about the adequacy of her adrenal function. Interestingly, the patient notes that she has been treated with prednisone 10 mg daily for the past 8 months due to the issue of rheumatoid arthritis. However, she has not appreciated much change in her body weight, dizzy or fainting spells, abdominal pain, nausea or vomiting or skin changes. REVIEW OF SYSTEMS: CONSTITUTIONAL: Fatigue, tiredness. No significant body weight changes. HEENT: Negative for sore throat, sinus pain or ear drainage. PULMONARY: Occasional issues with shortness of breath, cough, but not hemoptysis. CARDIAC: Negative for chest pain, syncope or presyncope. GASTROINTESTINAL: Noted for occasional abdominal discomfort and nausea, but no vomiting or significant changes in bowel movement frequency. NEUROLOGY: Negative for loss of consciousness, seizure activity or severe frequent headaches. SKIN: Negative for rash, ulceration or discoloration. Otherwise, review of systems noncontributory other than those mentioned in HPI. [facility] [address] [place] [address] CONSULTATION Name: KENYA RIVER Lynsey Room #: [facility] IN ..#: [id number] Admission: 02/23/20 Attend Phys: Del Lira Discharge: Date of : 57 Report #: [id number] PAST MEDICAL HISTORY: Noted for: 1. Rheumatoid arthritis. 2. History of non-Hodgkin lymphoma. 3. History of neutropenia. 4. Vitamin B12 deficiency. 5. Vitamin D deficiency. 6. Depression. 7. Hypertension. 8. Carpal tunnel syndrome. OUTPATIENT MEDICATIONS: Include prednisone 10 mg daily, duloxetine 40 mg daily and Orencia 125 mg weekly. ALLERGIES: No known drug allergies. FAMILY HISTORY: Noncontributory. SOCIAL HISTORY: The patient denies use of tobacco, alcohol or illicit drugs. PHYSICAL EXAMINATION: GENERAL: Pleasant female patient who is not in apparent pain or distress. VITAL SIGNS: Blood pressure is 95/49 mmHg, heart rate is 97 beats per minute, respirations 18 per minute, temperature 36.7 degrees Celsius. CONSTITUTIONAL: The patient is lying in bed, appears comfortable, not in pain or distress. HEENT: Anicteric sclerae. Intact extraocular motions. NECK: Supple, without JVD, carotid bruits or lymphadenopathy. I do not appreciate thyromegaly. CHEST: Noted for moderate entry bilaterally with scattered rales. No wheezes or crackles. HEART: Regular rate and rhythm without murmurs or gallops. ABDOMEN: Soft, lax. No guarding. Slight discomfort on deep palpation. Active bowel sounds. EXTREMITIES: Lower extremity exam is negative for ankle edema, skin breaks or ulcerations. NEUROLOGIC: Awake, alert and oriented to time, place and person. The remainder of her examination is largely nonfocal. PSYCHIATRIC: Normal mood and affect. Normal thought process. LABORATORY RESULTS: Blood glucose values have ranged between 69 and 114 mg/dL. Otherwise, sodium 136, potassium 3.7, chloride 106, CO2 of 23, anion gap 7, BUN 5, creatinine 0.6, AST 22, total bilirubin 0.3, direct bilirubin 0.1, calcium 7.5, phosphorus 2.5, magnesium 1.4, alkaline phosphatase 63, ALT 19, total protein 4.7, albumin 1.4, EGFR 101. Ammonia 15. Lactic acid 4.6 on 02/25/2020. [address] [address] CONSULTATION Name: KENYA RIVER Room #: 205-P ADM IN M.R.#: [id number] Admission: 02/23/20 Attend Phys: Del Lira Discharge: Date of : 57 Report #: [id number] BNP 19,026 on 02/29/2020. INR 1.0. White blood count 5.1, hemoglobin 8.5, hematocrit 25.2, platelets 129. TSH on 02/23/2020 was 0.565. Hemoglobin A1c 5.4%. She was negative for COVID-19 on 2 occasions. ASSESSMENT AND PLAN: 1. Adrenal insufficiency. This was suspected on the basis of the patient's tendency for hypotension and given her background chronic prednisone therapy for rheumatoid arthritis. The patient was counseled at length about the pathogenesis of adrenal insufficiency and its implications as well as about the importance of adequately addressing this issue should it be present. I agree that the patient's clinical outlook and background should invoke a suspicion of adrenal insufficiency. The patient is not currently on active steroids supplement. The patient is currently on hydrocortisone 25 mg daily. Given this presence of steroidal intake, I will proceed directly to ACTH stimulation testing in order to evaluate the patient's ability to respond to an adrenal stimulation. Further management decisions will be made on these results. 2. Hypotension. As noted above, this has prompted the question of whether or not the patient could potentially have adrenal insufficiency, but other etiologies like sepsis and cardiac issues are to be considered as well and are actually being addressed at this time. 3. Atrial fibrillation. The patient has atrial fibrillation with RVR and an ejection fraction of 55%. She is currently rate controlled on amiodarone p.o. She is to continue with the same. 4. Hyperglycemia. The patient had been documented to have sporadic mild hyperglycemia, the highest being at 174, which in itself is not enough to constitute a diagnosis of diabetes mellitus. Furthermore, her hemoglobin A1c is at 5.4%. However, under conditions of severe anemia, the patient is currently on a low intensity Humalog supplemental scale. We will continue to monitor her blood glucose as needed. I have reviewed the patient's clinical care notes, laboratory data and other pertinent clinical information for over 35 minutes in addition to my encounter with her. I certainly appreciate this consultation by Dr. Hardy. <ELECTRONICALLY SIGNED> By: Saranya Arriola MD 03/19/20 0910 1253 [id number] Saranya Arriola MD /nt
[2020-03-19] MEDS ORDERED: PERIDEX 0.12%473 M1 SWISH&SPIT (10:54)
[2020-03-19] MEDS ORDERED: PACERONE 200 M200 M1 PO (10:54)
[2020-03-19] MEDS ORDERED: PROTONIX40 M1 PO (10:54)
[2020-03-19] MEDS ORDERED: ELIQUIS5 MG PO (10:54)
[2020-03-19] MEDS ORDERED: PHOS-NAK PACKE1 EACH PO (10:54)
[2020-03-19] MEDS ORDERED: POTASSIUM40 MEQ/11 PO (10:54)
[2020-03-19 12:05] VITALS: BP 127/67
--- NOTE | 2020-03-19 14:26 | NUR ---
ASSESSMENT CHARTED. PT ALERT AND ORIENTED. VSS. IV ABX GIVEN SCHEDULED. SEEN BY DR. JENSEN OR CYNTHIA GIVEN TO DISCHARGE PT TO [address] [place] [address]. REPORT CALLED IN TO ABHI MADRID.
--- NOTE | 2020-03-19 14:51 | NUR ---
Patient to discharge to [facility], nephew with patient and aware. no further needs
[2020-03-19 21:05] LABS: CORTISOL 30 MIN 29.2 ug/dL (Not Estab.); CORTISOL 60 MIN 27.9 ug/dL (Not Estab.); CORTISOL BASELINE 13.7 ug/dL (())
== END 2020-03-19 14:29 | DRG 870 ==
LOC: ER 16:28 → ICU 20:00 → EROBS 20:00 → ICU 02-24 00:51 → 2N 03-06 15:01
PROVIDERS: Hospitalist; Internal Medicine; Internal Medicine Nephrology; Internal Medicine Pulmonary Disease; Nurse Practitioner; Nurse Practitioner Family; Pediatrics; Physician Assistant; Specialist; ADMIT Hospitalist; ATTEND Hospitalist
PROC: 0DJ08ZZ Inspection of Upper Intestinal Tract, Via Natural or Artificial Opening Endoscopic (ICD-10-PCS; 2020-02-24)
PROC: 5A1955Z Respiratory Ventilation, Greater than 96 Consecutive Hours (ICD-10-PCS; 2020-02-24)
PROC: 0BH17EZ Insertion of Endotracheal Airway into Trachea, Via Natural or Artificial Opening (ICD-10-PCS; 2020-02-24)
PROC: 0CJY8ZZ Inspection of Mouth and Throat, Via Natural or Artificial Opening Endoscopic (ICD-10-PCS; principal; 2020-03-10)
DX: A40.0 Sepsis due to streptococcus, group A (principal); R65.21 Severe sepsis with septic shock; E43 Unspecified severe protein-calorie malnutrition; G92 Toxic encephalopathy; J18.9 Pneumonia, unspecified organism; A48.3 Toxic shock syndrome; D61.818 Other pancytopenia; J91.8 Pleural effusion in other conditions classified elsewhere; L03.221 Cellulitis of neck; B95.0 Streptococcus, group A, as the cause of diseases classified elsewhere; I48.91 Unspecified atrial fibrillation; E87.6 Hypokalemia; F32.9 Major depressive disorder, single episode, unspecified; I95.9 Hypotension, unspecified; F41.9 Anxiety disorder, unspecified; R74.0 Nonspecific elevation of levels of transaminase and lactic acid dehydrogenase [LDH]; M25.462 Effusion, left knee; I34.0 Nonrheumatic mitral (valve) insufficiency; E87.70 Fluid overload, unspecified; K12.30 Oral mucositis (ulcerative), unspecified; S00.532A Contusion of oral cavity, initial encounter; R49.0 Dysphonia; R58 Hemorrhage, not elsewhere classified; E83.42 Hypomagnesemia; Z20.828 Contact with and (suspected) exposure to other viral communicable diseases; Z92.21 Personal history of antineoplastic chemotherapy; Z79.899 Other long term (current) drug therapy; Y93.89 Activity, other specified; Y92.89 Other specified places as the place of occurrence of the external cause
CPT/HCPCS: 10078; 10081; 27000; 62110; 62900; 70005

== ENCOUNTER 2020-03-09 12:07 | Inpatient (IN) | payer OTHER ==
[~2020-03-09] VITALS: Ht 167.6 cm; Wt 58.9 kg
[~2020-03-09 12:07] MED LIST: DRIZALMA SPRINK20 MG PO; ORENCIA125 MG/1 M SUBQ; PREDNISONE 5 MG5 M1 PO
[2020-03-11 05:46] LABS: HEMATOCRIT 23.4 % (37.0-47.0); HEMOGLOBIN 7.9 gm/dL (12.0-15.0); MCH 30.1 pg (26.0-34.0); MCHC 33.9 g/dL (28.0-37.0); RBC 2.63 mil/uL (4.20-5.00); WBC 4.3 thou/uL (4.0-11.0)
[2020-03-11 07:52] LABS: ALBUMIN 1.6 g/dL (3.4-5.0); CALCIUM 7.7 mg/dL (8.5-10.1); CREATININE 0.7 mg/dL (0.6-1.0); PHOSPHORUS 3.1 mg/dL (2.5-4.9); POTASSIUM 3.1 mmol/L (3.5-5.1)
[2020-03-13] MEDS ORDERED: DESYREL150 MG PO (12:49)
[2020-03-19] MEDS ORDERED: POTASSIUM40 MEQ/11 PO (10:54)
[2020-03-19] MEDS ORDERED: ELIQUIS5 MG PO (10:54)
[2020-03-19] MEDS ORDERED: PROTONIX40 M1 PO (10:54)
[2020-03-19] MEDS ORDERED: PACERONE 200 M200 M1 PO (10:54)
[2020-03-19] MEDS ORDERED: PHOS-NAK PACKE1 EACH PO (10:54)
[2020-03-19] MEDS ORDERED: PERIDEX 0.12%473 M1 SWISH&SPIT (10:54)
[2020-03-19 14:30] VITALS: BP 134/84
--- NOTE | 2020-03-19 18:02 | NUR ---
PT ARRIVED AT 1430 FROM CCU. ALERT AND ORIENTED*4. HR ELEVATED (108) AT REST, ALL OTHER VITALS REMAIN STABLE. DENIES PAIN AT THIS TIME. VOICE IS HOARSE, LS CLEAR, SATS STABLE. PT HAS 2+ BLE EDEMA, DARLEEN HOSE IN PLACE. PT HAD *1 UNFORMED BM. UP WITH 1 MOD-MAX ASSIST, GB AND WALKER AND TOLERATED WELL. Q1H VISUAL CHECKS. CALL LIGHT WITHIN REACH. FALL PRECAUTIONS IN PLACE
[2020-03-19 19:45] VITALS: BP 136/67
--- NOTE | 2020-03-20 00:52 | NUR ---
PT ALERT AND ORIENTED X 4. RFA AND LAC SALINE LOCKS INTACT AND PATENT. 2+ LE EDEMA BILAT. PT DENIES PAIN OR DISCOMFORT. BED ALARM ON FOR SAFETY. PT APPEARS TO BE SLEEPING ON HOURLY ROUNDS.
[2020-03-20 06:47] LABS: HEMATOCRIT 22.2 % (37.0-47.0); HEMOGLOBIN 7.4 gm/dL (12.0-15.0); MCH 30.2 pg (26.0-34.0); MCHC 33.4 g/dL (28.0-37.0); MCV 90.3 fL (80.0-100.0); RBC 2.46 mil/uL (4.20-5.00); RDW 16.1 % (10.5-14.5); WBC 4.2 thou/uL (4.0-11.0)
[2020-03-20 07:10] LABS: CALCIUM 8.1 mg/dL (8.5-10.1); CREATININE 0.5 mg/dL (0.6-1.0); POTASSIUM 3.4 mmol/L (3.5-5.1)
[2020-03-20 08:00] VITALS: BP 123/77
--- NOTE | 2020-03-20 09:30 | NUR ---
chart review. cm tried to visit with rafael, she was in her room working with therapy. education on team meeting. per chart pt lives alone, has friend and extending family. dpoa sister vignesh, jessie laura is the designated visitor , son jessica [phone]. prior to hospital she was independent. manage own medication, still drives vehicle. has steps to basement where the laundry room is at. cooks and cleans. no dme. will cont following as needed for dc needs.
--- NOTE | 2020-03-20 09:58 | NUR ---
ASSUMED CARE AT 0700. PATIENT IS ALERT AND ORIENTED X4, BUT FORGETFUL. PATIENT MASON'S, CHILD AND FAMILY SERVICES SPECIALIST ARE EQUAL. LUNGS ARE CLEAR. ABD IS SOFT WITH BX4. UP TO BSC WITH MAX ASSIST OF 1 TO THE BSC. PATIENT HAS S.L. IN HIS LEFT AC, AND RIGHT F.A. PATIENT IS ON LOW ENDURANCE. PATIENT HAS +2 L.E. EDEMA. FALL AND SAFETY PROTOCOLS IN PLACE. DENIES PAIN AT THIS TIME. CONTINUES TO PROGRESS SLOWLY TOWARDS D/C GOALS. WILL CONTINUE TO MONITER.
[2020-03-20 19:00] VITALS: BP 122/55
--- NOTE | 2020-03-21 00:19 | NUR ---
PT ALERT AND ORIENTED X 4. UP TO BSC WITH ASSIST X 1. 2+ LE EDEMA BILAT. PT DENIES PAIN OR DISCOMFORT. BED ALARM ON FOR SAFETY. PT APPEARS TO BE SLEEPING ON HOURLY ROUNDS.
[2020-03-21 08:45] VITALS: BP 136/82
--- NOTE | 2020-03-21 15:19 | NUR ---
ASSUMED CARE AT 0700. PATIENT IS ALERT AND ORIENTED X4. PATIENT MASON'S, BANQUET PREP COOK ARE EQUAL. LUNGS ARE CLEAR. ABD IS SOFT WITH BSX4. UP TO THE BSC WITH ASSIST OF 1 STAFF AND GAIT BELT. UP IN CHAIR FOR MEALS. S.L. PATENT IN LEFT FORARM. FALL AND SAFETY PROTOCOLS IN PLACE. DENIES PAIN AT THIS TIME. CONTINUES TO PROGRESS TOWARDS D/C GOALS. WILL CONTINEUE TO MONITER. PATIENT MOVED FROM ROOM 503 TO ROOM 501.
[2020-03-21 20:02] VITALS: BP 110/68
--- NOTE | 2020-03-22 02:13 | NUR ---
PATIENT DECLINING POTASSIUM AND CALCIUM, STATING SHE HAS ALREADY TAKEN THEM TODAY. DR BOB HERE IN THE EVENING, D/Cd ZOSYN 2 HOURS LATER. UP TO BSC WITH MOD ASSIST DUE TO WEAKNESS IN LEGS.
[2020-03-22 06:04] LABS: HEMATOCRIT 22.6 % (37.0-47.0); HEMOGLOBIN 7.5 gm/dL (12.0-15.0); MCH 30.3 pg (26.0-34.0); MCHC 33.2 g/dL (28.0-37.0); MCV 91.2 fL (80.0-100.0); PLATELET COUNT 137 thou/uL (150-400); RBC 2.48 mil/uL (4.20-5.00); WBC 4.7 thou/uL (4.0-11.0)
[2020-03-22 06:23] LABS: CALCIUM 8.6 mg/dL (8.5-10.1); CREATININE 0.6 mg/dL (0.6-1.0); MAGNESIUM 1.6 mg/dL (1.8-2.4); POTASSIUM 3.7 mmol/L (3.5-5.1)
[2020-03-22 08:00] VITALS: BP 132/58
--- NOTE | 2020-03-22 09:00 | NUR ---
PT. AOX4 IN BED, SMILING AT STAFF AND CONVERSING WELL. DENIES ANY "MAJOR ISSUES, GENERALIZED PAIN ON AND OFF LEVEL=2 OVERALL, NO MEDICATION REQUIRED AT THIS TIME. WILL CONTINUE TO MONITOR, INTRODUCED MYSELF AND PLACED CALL MEDEL WITHIN REACH AND HOW TO USE IT REITERATED AGAIN.
[2020-03-22 12:46] LABS: ABSOLUTE NEUTROPHILS 1.2 thou/uL (1.4-8.2); METAMYELOCYTES 1 %
[2020-03-22 12:49] LABS: ANISOCYTOSIS 1+; ATYPICAL LYMPHS 4 %
--- NOTE | 2020-03-22 15:04 | NUR ---
PT. AROUSES EASILY, DENIES ANY "MAJOR PAIN"-RIGHT NOW, OVERALL APPEARS COMFORTABLE. DENIES ANY CP, DENIES ANY SOB.
--- NOTE | 2020-03-22 17:39 | NUR ---
PT. UP IN BED EATING HER DINNER TRAY WITH HER . ASKED FOR MORE TEA, PROVIDED AT THIS TIME. DENIES ANY PAIN AT THIS TIME, NO SOB. VERY CALM, DENIES AND THROAT MEDICATION NEED AT THIS TIME WELL.
[2020-03-23 00:26] VITALS: BP 119/66
--- NOTE | 2020-03-23 04:23 | NUR ---
Pt. rested during the night when checked on during frequent rounds. Offers no complaints. Bed alarm is on.
[2020-03-23 08:00] VITALS: BP 113/63
--- NOTE | 2020-03-23 09:00 | NUR ---
Assumed care 0700. Alert and oriented x 4. No c/o's. Self fed breakfast.
[2020-03-23 11:11] VITALS: BP 127/61
--- NOTE | 2020-03-23 17:00 | NUR ---
Pt. dozed at intervals. Visited by her nephew who phoned in new point person who would be visiting her starting 03/30/20. She states she has no knowledge of the origin of her admitting illness. She declined to have IV saline locks removed as was discussed with nurse practitioner Love--no IV's being ordered. She wanted them left in place"just in case" they were needed.
[2020-03-23 21:54] VITALS: BP 115/68
--- NOTE | 2020-03-24 02:43 | NUR ---
Assumed care on 03/23/20 @ 19:15, in bed awake, alert and oriented x 3 to person, time, and president. Not entirely oriented to purpose of hospitalization. Took meds cut in two and with 2 cups of orange juice. HRRR, Lungs CTA, ABD Normoactive bowel sounds. Reports BM today, 03/23. VSS, speaks with a very soft voice. Urine output and bm noted in the night. Will continue to monitor as per protocol for patient safety and comfort.
[2020-03-24 08:20] VITALS: BP 127/70
--- NOTE | 2020-03-24 09:25 | NUR ---
ASSUMED CARE AT 0700. PATIENT IS ALERT AND ORIENTED X4. PATIENT MASON'S, VOIP NETWORK ENGINEER ARE EQUAL. LUNGS ARE CLEAR. ABD IS SOFT WITH BSX4. PATIENT UP IN CHAIR FOR MEALS. PATIENT HAD BREAKFAST WITH S.T. S.L. IN BOTH FORARMS PATIENT AND INTACT. PATIENT IS UP WITH GAIT BELT AND WALKER TO THE BATHROOM WITH ASSIST OF 1 STAFF TO VOID VARSHA COLORED URINE. FALL AND SAFETY PROTOCOLS IN PLACE. DENIES PAIN AT THIS TIME. CONTINUES TO PROGRESS TOWARDS D/C GOALS. WILL CONTINUE TO MONITER.
[2020-03-24 19:15] VITALS: BP 118/72
--- NOTE | 2020-03-25 02:18 | NUR ---
UP TO TOILET WITH ONE PERSON ASSIST TO STAND DUE TO WEAK LEGS AND STANDBY ASSIST TO TOILET FOR VOID AND BM. UP TO BSC NOW PER CHOICE. ABLE TO REMOVE OWN DARLEEN HOSE AT HS. PLEASANT AND ABLE TO SWALLOW PILLS, LARGE ONES SPLIT, WITH WATER.
[2020-03-25 10:03] VITALS: BP 116/71
--- NOTE | 2020-03-25 11:21 | NUR ---
ASSUMED CARE AT 0700. PATIENT IS ALERT AND ORIENTED X4. PATIENT MASON'S, WIDTH STRIPPER ARE EQUAL. LUNGS ARE CLEAR. ABD IS SOFT WITH BSX4. UP TO THE BR WITH GAIT BELT AND WALKER. VOIDING VARSHA COLORED URINE. FALL AND SAFETY PROTOCOLS IN PLACE. DENIES PAIN . CONTINUES TO PROGRESS TOWARDS D/C GOALS. WILL CONTINUE TO MONITER.
[2020-03-25 21:43] VITALS: BP 102/58
--- NOTE | 2020-03-26 00:28 | NUR ---
PT ALERT AND ORIENTED X 4. UP TO BSC WITH ASSIST X 1. 1+ LE EDEMA BILAT. PT DENIES PAIN OR DISCOMFORT. BED ALARM ON FOR SAFETY. PT APPEARS TO BE SLEEPING ON HOURLY ROUNDS.
[2020-03-26 06:00] LABS: HEMATOCRIT 26.1 % (37.0-47.0); HEMOGLOBIN 8.6 gm/dL (12.0-15.0); MCH 30.3 pg (26.0-34.0); MCV 91.8 fL (80.0-100.0); RBC 2.84 mil/uL (4.20-5.00); WBC 4.4 thou/uL (4.0-11.0)
[2020-03-26 10:21] LABS: CALCIUM 9.3 mg/dL (8.5-10.1); CREATININE 0.8 mg/dL (0.6-1.0); MAGNESIUM 2.1 mg/dL (1.8-2.4); POTASSIUM 4.5 mmol/L (3.5-5.1)
[2020-03-26 13:29] VITALS: BP 121/65
--- NOTE | 2020-03-26 19:42 | NUR ---
ASSUMED CARE OF PT AT 0715. PT IS A&OX4. IS ON ROOM AIR. IS STABLE. DENIES PAIN. IS UP WITH 1 ASSIST, GB, WALKER TO BSC. FALL PRECAUTIONS & HOURLY ROUNDING MAINTAINED THROUGHOUT THIS SHIFT. PT REMAINS WITH HOARNESS. IS A DAILY WT. LABS & VITALS REVIEWED. PT IS CURRENTLY IN ROOM RESTING IN BED. CALL LIGHT WITHIN REACH.
[2020-03-26 19:55] VITALS: BP 106/57
--- NOTE | 2020-03-27 02:10 | NUR ---
PT ASSESSMENT COMPLETED AND VSS. MEDS GIVEN ORDERED AND WELL TOLERATED. FALL PRECAUTIONS IN PLACE. UP TO THE BATHROOM WITH ASST/GAIT/WALKER. STEADY. VOIDING MODERATE AMOUNT OF YELLOW URINE. URGENCY AT TIMES. SLEEPING WELL. DENIES NEEDS. WILL CONTINUE TO MONITOR FREQUENTLY.
[2020-03-27 09:52] VITALS: BP 110/54
[2020-03-27 11:45] VITALS: BP 110/54
--- NOTE | 2020-03-27 12:33 | NUR ---
team meeting, recommendation dc 14th pt ot nursing then transfer to outpt therapy and fww.
[2020-03-27 17:29] LABS: URINE BILIRUBIN NEGATIVE (Negative); URINE BLOOD NEGATIVE (Negative); URINE CLARITY CLEAR; URINE COLOR YELLOW; URINE GLUCOSE-RANDOM* NEGATIVE (Negative); URINE KETONES NEGATIVE (Negative); URINE LEUKOCYTES-REFLEX NEGATIVE (Negative); URINE NITRITE-REFLEX NEGATIVE (Negative); URINE PROTEIN (DIPSTICK) NEGATIVE (Negative); URINE UROBILINOGEN 0.2 E.U./dl (0.2-1.0)
[2020-03-27 20:00] VITALS: BP 100/59
--- NOTE | 2020-03-27 23:53 | NUR ---
PT ASSESSMENT COMPLETED AND VSS. MEDS GIVEN ORDERED AND WELL TOLERATED. FALL PRECAUTIONS IN PLACE. UP TO THE BATHOOM WITH ASST/GAIT/WALKER. STEADY. PT DENIES NEEDS. SLEEPING WELL. GAVE REPORT TO ONCOMING JULIUS MACHADO.
--- NOTE | 2020-03-28 02:15 | NUR ---
ASSUMED CARE AT 2300. PT ALERT AT THAT TIME, PLEASANT AND TALKATIVE, DENIED ANY NEEDS. PT HAS RESTED THROUGHOUT THE NIGHT WITH NO C/O'S, TURNED Q 2 HOURS. PT HAS SOFT AND RASPY VOICE, BUT VOLUME IS IMPROVING WITH CUES. PT DENIED PAIN.
--- NOTE | 2020-03-28 06:15 | NUR ---
LATE ENTRY FOR 03/27/20. ASSUMED CARE OF PT AT 0700. PT IS A&OX4 AND VITAL SIGNS ARE STABLE. PT DENIES PAIN AND PARTICIPATED IN SCHEDULED THERAPIES. PER NIGHT NURSE PT HAVING URGENCY AND FREQUENCY, UA ORDERED AND OBTAINED. FALL PRECAUTIONS IN PLACE AND NURSING WILL CONTINUE TO MONITOR.
--- NOTE | 2020-03-28 06:17 | NUR ---
ASSUMED CARE OF PT AT 0300. PT IS A&OX4, ASSISTED TO BATHROOM. REVIEWED VITAL SIGNS AND ASSESMENT FROM PREVIOUS NURSE, AND NO CHANGES AT THIS TIME. FALL PRECAUTIONS IN PLACE AND NURSING WILL CONTINUE TO MONITOR.
[2020-03-28 08:00] VITALS: BP 114/62
--- NOTE | 2020-03-28 10:47 | NUR ---
FAXED REFERRAL TO [facility] SPOKE WITH ALEKSANDR IN INTAKE SHE RECEIVED REFERRAL AND WILL ACCEPT AT [place]. ANTICIPATE DC 03/30.
--- NOTE | 2020-03-28 11:02 | NUR ---
cm notified by ot that rafael stated she would like her dc time to be 1030 on thursday the .
--- NOTE | 2020-03-28 14:25 | NUR ---
FAXED REFERRAL TO [facility] SPOKE WITH ALEKSANDR IN INTAKE SHE RECEIVED REFERRAL AND WILL ACCEPT AT [place]. ANTICIPATE DC 03/30.
[2020-03-28 14:26] VITALS: BP 114/62
--- NOTE | 2020-03-28 15:49 | NUR ---
ASSUMED CARES AT 0700. PT AWAKE ALERT AND ORIENTED*4. DENIES PAIN. VITALS REMAIN STABLE. VOICE REMAINS HOARSE IMPROVEMENT NOTED FROM LAST CHARTED. PT CALLING APPROPRIATELY FOR HER MEDS PER [facility] MOUTHWASH ADMINISTERED FOR ORAL THRUSH ORDERED. PT UP WITH 1 MIN ASSIST AND TOLERATED WELL. Q1H VISUAL CHECKS. CALL LIGHT WITHIN REACH. FALL PRECAUTIONS IN PLACE
[2020-03-28 20:00] VITALS: BP 103/48
--- NOTE | 2020-03-29 01:42 | NUR ---
ASSUMED CARE OF PT AT 1915 ON 03/28/20. PT IS A&OX4. IS ON ROOM AIR. DENIES PAIN. IS STABLE. CONTINUES TO HAVE HOARNESSS THAT IS IMPROVING. PT CALLED FOR 2100 MEDICATION REQUEST BY . IS UP WITH 1 ASSIST GB WALKER TO BATHROOM. FALL PRECAUTIONS & HOURLY ROUNDING CONTINUED THIS SHIFT. LABS & VITALS REVIEWED. CALL LIGHT WITHIN REACH. PT IS CURRENTLY SLEEPING. WILL CONTINUE TO MONITOR.
[2020-03-29 06:15] LABS: ABSOLUTE NEUTROPHILS 1.4 thou/uL (1.4-8.2); BASOPHILS 0.8 % (0.0-2.0); EOSINOPHILS 0.1 % (0.0-3.0); HEMATOCRIT 25.1 % (37.0-47.0); HEMOGLOBIN 8.4 gm/dL (12.0-15.0); LYMPHOCYTES 55.1 % (24.0-44.0); MCH 30.1 pg (26.0-34.0); MCHC 33.3 g/dL (28.0-37.0); MCV 90.5 fL (80.0-100.0); MONOCYTES 11.1 % (1.0-8.0); PLATELET COUNT 189 thou/uL (150-400); POLYS 32.9 % (36.0-66.0); RBC 2.78 mil/uL (4.20-5.00); RDW 16.1 % (10.5-14.5); WBC 4.2 thou/uL (4.0-11.0)
[2020-03-29 06:53] LABS: CALCIUM 8.8 mg/dL (8.5-10.1); CREATININE 0.6 mg/dL (0.6-1.0); MAGNESIUM 2.2 mg/dL (1.8-2.4); POTASSIUM 3.7 mmol/L (3.5-5.1)
[2020-03-29 07:58] VITALS: BP 115/69
--- NOTE | 2020-03-29 10:03 | NUR ---
spoke with rafael and she stated we can go over pcp list later. my friend will be here tomorrow by 10 am to get me and do paperwork"/rafael.
[2020-03-29] MEDS ORDERED: ELIQUIS5 MG PO ×2 (10:26→10:40)
[2020-03-29] MEDS ORDERED: PACERONE 200 M200 M1 PO (10:56)
[2020-03-29] MEDS ORDERED: LASIX 20 MG TAB20 MG PO (10:56)
[2020-03-29] MEDS ORDERED: FOLIC ACID1 MG PO (10:56)
[2020-03-29] MEDS ORDERED: FLORANEX GRANU1 EACH PO (10:56)
--- NOTE | 2020-03-29 16:52 | NUR ---
ASSUMED CARE OF PT AT 0700. PT IS A&OX4 AND VITAL SIGNS ARE STALE. PT REPORTED PAIN TO KNEES, NEW ORDERS FOR VOLTAREN GEL OBTAINED. PT DID NOT CALL FOR AM MEDICATIONS. PLANS FOR DISCHARGE TOMORROW. VOICE HOARSE, NO COUGHING. FALL PRECAUTIONS IN PLACE AND NURSING WILL CONTINUE TO MONITOR.
--- NOTE | 2020-03-30 00:52 | NUR ---
ASSESSMENT COMPLETED. PT IS ALERT AND ORIENTED. SHE IS ON ROOM AIR SATTING FINE. DENIES ANY SOA OR COUGH. AFEBRIEL. PT CALLED FOR HS MEDS WHEN IT WAS DUE. PT OBSERVED TAKING THE MEDS WITH NO DIFFICULTIES. SHE GOES TO THE BATHROOM WITH SBA USING ROLLERV WALKER. WILL CONTINUE WITH POC. ANTICIPATING D/C IN THE AM.
[2020-03-30 07:41] VITALS: BP 114/62
[2020-03-30 08:00] VITALS: BP 114/70
[2020-03-30 10:31] VITALS: BP 114/62
[2020-03-30] MEDS ORDERED: KLOR-CON 10 ER10 MEQ PO (10:32)
--- NOTE | 2020-03-30 10:32 | NUR ---
ASSUMED CARE OF PT AT 0700. PT IS A&OX4 AND VITAL SIGNS ARE STABLE. PT DENIES PAIN. ORDERS FOR DISCHARGE. DISCHARGE MEDICATIONS REVIEWED, PROVIDED ELIQUIS GIVEN TO PT WITH COUPON FROM CM, OUTPATIENT THERAPY SCRIPT PROVIDED. REVIEWED DISCHARGE INSTRUCTIONS AND EDUCATION WITH PT. PT DENIES QUESTIONS. DISCHARGE PAPERS SIGNED. PT ASSISTED TO ED FOR DISCHARGE BY INVOICE CHECKER WITH PT FRIEND. BELONGINGS REMOVED FROM ROOM BY INVOICE CHECKER AND PT. LEFT UNIT AT 1030.
--- NOTE | 2020-04-02 10:59 | H ---
[facility] [place] [address] HISTORY AND PHYSICAL Name: KENYA RIVER Room #: 501-A [facility] IN ..#: [id number] Admission: 03/19/20 Attend Phys: Ricci Alejandro MD Discharge: 03/30/20 Date of : 57 Report #: [id number] THIS REPORT FOR: cc: ROSALINA - Cristina family physician/PCP ROSALINA - No family physician/PCP Ricci Alejandro MD ~ CC: Ricci ROMANO physician/PCP DATE OF SERVICE: 03/19/2020 HISTORY AND PHYSICAL/POST-ADMISSION PHYSICIAN EVALUATION HISTORY OF PRESENT ILLNESS: The patient is a 65-year-old white female who was originally admitted on 02/23/2020 with mental status changes and acute respiratory failure. She was noted to have severe sepsis with toxic shock and was initially severely confused. She was intubated and mechanically ventilated for 9 days, extubated on 03/06/2020. She had hypotension, atrial fibrillation with rapid ventricular response, anasarca, acute renal insufficiency, toxic metabolic encephalopathy, elevated liver function tests with shock liver with significant anemia with hemoglobin dropping from 14.4 down to 8.6. COVID was negative. GI was involved and EGD was done, which did not show any significant bleeding. This was done on 02/08/2020 and showed a normal esophagus, normal stomach and normal duodenum. No endoscopic etiology of her anemia. Plan was to continue to monitor for subclinical signs of gastrointestinal blood loss. She gradually stabilized and now was felt to be ready for acute in-hospital inpatient rehabilitation. PAST MEDICAL HISTORY: Prior history includes rheumatoid arthritis for which she was on medication management with immunosuppressed status, history of chronic steroid use. She also has a history of depression. PAST SURGICAL HISTORY: Includes carpal tunnel release. HABITS: Past tobacco abuse. MEDICATIONS: Please see the full medication listing. ALLERGIES: No known drug allergies. SOCIAL HISTORY: Previously living in a house alone, 4-5 steps in. Otherwise, can stand one floor, does have a basement with laundry, but does not need to go down there. She was premorbidly retired, was driving. She has a sister in [place]. There is a friend who has been involved in [place]. There are nieces and nephews that are noted to be closely involved as well. The friend indicates that the family apparently would be able to take some turns as [facility] [address] [place] [address] HISTORY AND PHYSICAL Name: GRISELDA RIVERCASSIDY Menon Room #: 501-A [facility] IN ..#: [id number] Admission: 03/19/20 Attend Phys: Ricci Alejandro MD Discharge: 03/30/20 Date of : 57 Report #: [id number] far as assisting her. REVIEW OF SYSTEMS: No chest pain, shortness of breath, abdominal discomfort. She has had some dysphagia, but is on a mechanical soft, thin liquid diet. She had previously been on nectar thick. PHYSICAL EXAMINATION: GENERAL: She is a 65-year-old white female in no obvious distress. VITAL SIGNS: Last recorded temperature 98.5, pulse 93, respirations 20, and blood pressure 136/67. NEUROLOGIC: The patient is alert. She is pleasant. There is some delay in her responses. HEENT: Facies appeared symmetric. CHEST: Sounded clear to auscultation. CARDIOVASCULAR: Regular rate and rhythm. ABDOMEN: Bowel sounds positive, nontender. GENITOURINARY AND RECTAL: Deferred. EXTREMITIES: She has some chronic rheumatoid arthritic changes. Functional range of motion with strength grade 3 to 3+/5. Lower extremities functional range of motion with strength grade 3 to 3+/5. Tone appeared to be intact. She moves very slowly and has been mod assist with basic bed mobility. She has been mod-to-min assist with transfers and trying to get up with a front-wheeled walker. She has been nonambulatory to this point. ASSESSMENT: A 65-year-old white female with the following problem list: 1. Critical illness myopathy. 2. Toxic metabolic encephalopathy. 3. Severe sepsis with prolonged mechanical ventilation. 4. Dysphagia, which has improved. 5. Pancytopenia. 6. Anemia with normal EGD. 7. Shock liver. 8. Anasarca. 9. Atrial fibrillation. 10. Acute renal insufficiency. 11. History of rheumatoid arthritis with chronic immunosuppression. 12. History of lymphoma, status post chemotherapy. PLAN: The patient has been admitted for acute in-hospital inpatient rehabilitation. From a post-admission physician evaluation perspective, there are no relevant changes since the preadmission screening. Please see the above review of prior and current medical and functional conditions and comorbidities. Please see the previous and current functional goals. As far as risk of complication, she does have the multiple medical complications and comorbidities. Initial plan of care involves the interdisciplinary acute inpatient rehabilitation program. Measurable functional goals would be for her [facility] [address] [place] [address] HISTORY AND PHYSICAL Name: KENYA RIVER Room #: 501-A [facility] Bib.#: [id number] Admission: 03/19/20 Attend Phys: Ricci Alejandro MD Discharge: 03/30/20 Date of : 57 Report #: [id number] to improve as far as strength, mobility, ADLs, cognition as well as further improvement in swallowing. Prognosis is reasonably good with estimated length of stay probably fairly long at least 2-1/2 to 3 weeks as she is at a lower level. Potential barriers would include her multiple medical comorbidities and decreased functional status. The patient meets the diagnostic criteria for an acute in-hospital inpatient rehabilitation stay. She meets the medical necessity criteria. She does have the tolerance for therapies and has appropriate discharge goals back to the home setting. ADDENDUM: The patient does have anasarca and has lower extremity edema at least 2+. I did order thigh high DARLEEN hose and we will be monitoring. She also has an upper extremity PICC line that is in place. She is continuing on the antibiotics and antifungals as per Infectious Disease as she was noted to have group A strep toxic shock with multisystem failure. <ELECTRONICALLY SIGNED> By: Ricci Alejandro MD 04/02/20 [id number] Ricci Alejandro MD /nt
--- NOTE | 2020-04-02 11:03 | PLAN ---
[facility] [place] [address] REHAB UNIT PLAN OF CARE Name: KENYA RIVER Lynsey Room #: 501-A [facility] IN ..#: [id number] Admission: 03/19/20 Attend Phys: Ricci Alejandro MD Discharge: 03/30/20 Date of : 57 Report #: [id number] THIS REPORT FOR: //name// CC: Ricci Alejandro [facility] physician/PCP DATE OF SERVICE: 03/21/2020 PROGRESS NOTE/OVERALL PLAN CARE SUBJECTIVE: The patient is a 65-year-old female who is being seen back in followup. She is pleasant, in good spirits this morning. Temperature is 98.8, pulse 107, respirations 20, blood pressure 122/55. Alert, following basic 1 step commands. Lower extremity edema appears a little bit better, probably still at least a grade 2+/5. Functionally, she is max assist, sit to stand, has ambulated 6 feet mod assist in the parallel bars. In occupational therapy, lower body dressing is max assist. As far as speech therapy, she has mild memory deficits. Functional cognition, moderate expressive deficits. ASSESSMENT: 1. Critical illness myopathy. 2. Toxic metabolic encephalopathy. 3. Severe sepsis with prolonged mechanical ventilation. 4. Dysphagia, which has improved. She is currently on mechanical soft, thin liquid diet. 5. Pancytopenia. 6. Anemia with normal EGD. 7. Shock liver. 8. Anasarca. 9. Atrial fibrillation. 10. Acute renal insufficiency. 11. History of rheumatoid arthritis with chronic immunosuppression. 12. History of lymphoma, status post chemotherapy. PLAN: The overall plan of care is based on the preadmission screen, post-admission physician evaluation and information garnered from therapy assessments. 1. Estimated length of stay is probably at least 2-1/2 to 3 weeks. 2. Medical prognosis is reasonably good. 3. Anticipated interventions includes the interdisciplinary acute inpatient rehabilitation program. 4. Anticipated functional outcomes would be for the patient to become modified independent with transfers, mobility, ADLs, so she can hopefully return back to the home setting. 5. Discharge destination plan for back home where she lives in a house by herself, but does have supportive family that are involved. 6. Expected therapy by discipline includes PT, OT [address] [address] REHAB UNIT PLAN OF CARE Name: KENYA RIVER Room #: 501-A [facility]#: [id number] Admission: 03/19/20 Attend Phys: Ricci Alejandro MD Discharge: 03/30/20 Date of : 57 Report #: [id number] and speech 1 hour per day each five days a week throughout the duration of the acute inpatient rehabilitation stay. <ELECTRONICALLY SIGNED> By: Ricci Alejandro MD 04/02/20 1103 [id number] Ricci Alejandro MD /PMT
== END 2020-03-30 10:30 | disposition home health service (06) | DRG 91 ==
PROVIDERS: Hospitalist; Nurse Practitioner; Nurse Practitioner Family; ADMIT Physical Medicine & Rehabilitation; ATTEND Physical Medicine & Rehabilitation
DX: G72.81 Critical illness myopathy (principal); G92 Toxic encephalopathy; A41.9 Sepsis, unspecified organism; R65.21 Severe sepsis with septic shock; J96.01 Acute respiratory failure with hypoxia; E43 Unspecified severe protein-calorie malnutrition; K72.00 Acute and subacute hepatic failure without coma; D61.818 Other pancytopenia; K52.1 Toxic gastroenteritis and colitis; I48.20 Chronic atrial fibrillation, unspecified; N17.9 Acute kidney failure, unspecified; R13.10 Dysphagia, unspecified; M06.9 Rheumatoid arthritis, unspecified; F32.9 Major depressive disorder, single episode, unspecified; I10 Essential (primary) hypertension; E83.42 Hypomagnesemia; R53.81 Other malaise; E87.6 Hypokalemia; T36.95XA Adverse effect of unspecified systemic antibiotic, initial encounter; Y92.89 Other specified places as the place of occurrence of the external cause; K12.30 Oral mucositis (ulcerative), unspecified; Z68.21 Body mass index [BMI] 21.0-21.9, adult; B95.0 Streptococcus, group A, as the cause of diseases classified elsewhere; Z85.71 Personal history of Hodgkin lymphoma; Z79.52 Long term (current) use of systemic steroids; Z79.899 Other long term (current) drug therapy
CPT/HCPCS: 10112

== ENCOUNTER → 2020-06-13 | Outpatient (CLI) | payer OTHER, MEDICARE ==
[~2020-06-13] MED LIST changes: +DESYREL150 MG PO; +ELIQUIS5 MG PO; +FLORANEX GRANU1 EACH PO; +FOLIC ACID1 MG PO; +KLOR-CON 10 ER10 MEQ PO; +LASIX 20 MG TAB20 MG PO; +PACERONE 200 M200 M1 PO; +PERIDEX 0.12%473 M1 SWISH&SPIT; +PHOS-NAK PACKE1 EACH PO; +POTASSIUM40 MEQ/11 PO; +PROTONIX40 M1 PO
== END ==
LOC: SJCVC 12:58
PROVIDERS: ATTEND Internal Medicine
DX: I48.0 Paroxysmal atrial fibrillation (principal); E78.5 Hyperlipidemia, unspecified; Z79.899 Other long term (current) drug therapy; Z87.891 Personal history of nicotine dependence; Z85.72 Personal history of non-Hodgkin lymphomas

== ENCOUNTER → 2020-08-16 | Outpatient (CLI) | payer OTHER, MEDICARE | LOC: SJCVC 10:26 | PROVIDERS: ATTEND Internal Medicine | DX: R94.31 Abnormal electrocardiogram [ECG] [EKG] (principal); R07.9 Chest pain, unspecified; I48.0 Paroxysmal atrial fibrillation; E78.5 Hyperlipidemia, unspecified; R06.02 Shortness of breath; Z85.72 Personal history of non-Hodgkin lymphomas; Z88.1 Allergy status to other antibiotic agents; Z88.2 Allergy status to sulfonamides; Z79.899 Other long term (current) drug therapy; Z87.891 Personal history of nicotine dependence; Z72.89 Other problems related to lifestyle ==

== ENCOUNTER → 2020-08-22 | Outpatient (CLI) | payer OTHER, MEDICARE | LOC: LAB 10:04 | PROVIDERS: ATTEND Nurse Practitioner | DX: Z20.828 Contact with and (suspected) exposure to other viral communicable diseases (principal) ==

== ENCOUNTER → 2020-10-02 | Outpatient (CLI) | payer OTHER, MEDICARE | LOC: SJCVCIMAG 10:16 | PROVIDERS: ATTEND Internal Medicine | DX: R00.0 Tachycardia, unspecified (principal); I49.3 Ventricular premature depolarization; I48.0 Paroxysmal atrial fibrillation; E78.5 Hyperlipidemia, unspecified; M06.9 Rheumatoid arthritis, unspecified; J96.90 Respiratory failure, unspecified, unspecified whether with hypoxia or hypercapnia; Z98.890 Other specified postprocedural states; Z88.8 Allergy status to other drugs, medicaments and biological substances; Z79.899 Other long term (current) drug therapy; Z87.891 Personal history of nicotine dependence; Z82.49 Family history of ischemic heart disease and other diseases of the circulatory system ==